=== PATIENT | female | born 1995 | race Caucasian/White ===

== ENCOUNTER → 2020-07-27 11:51 | Outpatient (BNVA) | payer MEDICAID, SELFPAY | PROVIDERS: Family Provider Family Medicine; Visit Provider Psychiatry & Neurology Psychiatry | DX: F32.9 Major depressive disorder, single episode, unspecified (principal); F41.9 Anxiety disorder, unspecified | CPT/HCPCS: 99214 ==

== ENCOUNTER 2020-10-16 19:47 | Emergency (ER) | payer BC, MEDICAID, SELFPAY ==
[2020-10-16 20:04] VITALS: BP 127/86; PULSE 120; RESP 14; TEMP 36.8; O2SAT 98; BMI 40.0
--- NOTE | 2020-10-16 20:19 | W.ED.FEMALGU ---
HPI - Female Genitourinary General: Chief complaint: Urogenital-Female Stated complaint: poss uti Time Seen by Provider: 10/16/20 20:08 History of Present Illness: HPI Narrative: Patient with 2-day history of urinary tract infection symptoms frequency oliguria has been taking Azo without relief has had a UTI in the past. Denies fever chills nausea or vomiting denies any vaginal discharge MD elicited complaint: UTI Onset (ago): day(s) Associated symptoms: Deny abdominal pain, headache(s) or nausea Review of Systems Const: Denies: fever(s), chills or body aches Eyes: Denies: change in vision or blurry vision ENMT: Denies: throat pain or nasal congestion Card: Denies: chest pain or dyspnea on exertion Resp: Denies: dyspnea, productive cough or non-productive cough GI: Denies: abdominal pain, nausea or vomiting : Reports: urinary frequency, urinary urgency and oliguria Musc: Denies: extremity pain Skin/Breast: Denies: rash Neuro: Denies: headache(s) Psych: Denies: anxiety or depression Jordin/Lymph: Denies: easy bruising PFSH ED PFSH: Medical History (Updated 10/16/20 @ 20:43 by ALMA Kaufman) Anxiety MDD (major depressive disorder) Social History (Updated 06/14/20 @ 15:02 by Ijeoma Hart LPN) Smoking and tobacco status: never smoked Second hand smoke exposure: No Current gender identity: Female Physical Exam Const: COMMON NORMALS: no acute distress, average body habitus and patient oriented x3 HENMT: COMMON NORMALS: normocephalic HEAD & SCALP: normal to inspection and normocephalic FACE & SINUS: normal facial exam Eye: COMMON NORMALS: conjunctivae normal GENERAL EYE: appearance normal, both eyes and all related structures CONJUNCTIVA: Yes conjunctivae normal Neck/C-Spine: COMMON NORMALS: no JVD Chest: COMMONS NORMALS: normal inspection of the chest Resp: COMMON NORMALS: normal respiratory effort Cardio: COMMON NORMALS: no JVD and regular rhythm RATE: tachycardic RHYTHM: regular rhythm GI: COMMON NORMALS: Normal to inspection, nondistended, normoactive bowel sounds present Extremity: COMMON NORMALS: normal to inspection and full ROM Neuro: COMMON NORMALS: patient oriented x3 Course Vital Signs: Vital signs: Vital Signs Temperature 98.2 F 10/16/20 20:04 Pulse Rate 120 H 10/16/20 20:04 Respiratory Rate 14 10/16/20 20:04 Blood Pressure 127/86 10/16/20 20:04 Pulse Oximetry 98 10/16/20 20:04 MDM - Female MDM Narrative: Medical decision making narrative: Patient with history of UTI type symptoms but UA is negative. She has left ovary area pain mildly tender. Does has some dysuria pain with urination said nassar when she pees. We will treat for localized inflammation and for her left ovary pain and she is to follow-up with her primary care provider. Differential Diagnosis: Differential diagnosis: Likely abdominal pain and constipation Lab Data: Labs: Lab Results 10/16/20 Range/Units 20:17 Urine Color Yellow (Yellow) Urine Appearance Clear (CLEAR) Urine pH 5.0 (5-7) Ur Specific Gravit y 1.010 (1.005-1.030) Urine Protein Neg (Negative) Urine Glucose (UA) Norm (Normal) Urine Ketones Negative (Negative) Urine Blood Neg (Negative) Urine Nitrate Negative (Negative) Urine Bilirubin Neg (Negative) Urine Urobilinogen Norm (Negative) mg/dL Ur Leukocyte Elaina ase Negative (Negative) Discharge Plan Discharge Patient Disposition: Home Clinical Impression: Dysuria Ovarian cyst Qualifiers: Laterality: left Qualified Code(s): N83.202 - Unspecified ovarian cyst, left side Condition: Stable Prescriptions: New Naprosyn 500 mg tablet 250 mg PO TID 3 Days Qty: 9 RF: 0 3-Day Vaginal 2 % cream 1 appful vaginal ONCE Qty: 21 RF: 0 No Action fluoxetine 40 mg capsule 40 mg PO DAILY 30 Days Qty: 30 RF: 3 buspirone 5 mg tablet 5 mg PO BID PRN (Reason: anxiety) 30 Days Qty: 60 RF: 3 Discharge Orders: Discharge ED (Routine); Ordered 10/16/20 Ordered By: Austyn Moran Referrals: Bryant Downey DO [Primary Care Provider] - Discharge Diet: Usual diet Discharge Activity: Resume usual activity Patient Instructions: Ovarian Cyst (ED), Dysuria (ED) Activity Restrictions/Additional Instructions: Follow-up with medical provider as directed. Take medications as prescribed. Return to the ER or your medical provider if condition worsens. Please read and understand discharge instructions. If any questions ask please. Coding Level of Care Code ED Education Courses Sales Representative for Chg Fwd Exam Comprehensive
[2020-10-16 20:23] LABS: Add Urine Microscopic? NO
[2020-10-16 20:37] LABS: Bilirubin Urine Neg (Negative); Blood Urine Neg (Negative); Glucose Urine UA Norm (Normal); Ketones Urine Negative (Negative); Leukocyte Esterase Urine Negative (Negative); Nitrate Urine Negative (Negative); Protein Urine Neg (Negative); Urine Appearance Clear (CLEAR); Urine Color Yellow (Yellow); Urobilinogen Urine Norm (Negative)
[2020-10-16] MEDS: TRAMadol 50 mg Tablet PO (21:09)
[2020-10-16 21:10] VITALS: BP 133/91; PULSE 111; RESP 14; O2SAT 97
== END 2020-10-16 21:10 | disposition home or self-care (01) ==
PROVIDERS: Emergency Provider Nurse Practitioner Family; PCP Family Medicine
DX: R30.0 Dysuria (principal); N83.202 Unspecified ovarian cyst, left side
CPT/HCPCS: 12345; 81003; 99281; 99282

== ENCOUNTER → 2020-11-02 07:59 | Outpatient (BNVA) | payer BC, SELFPAY | PROVIDERS: PCP Family Medicine; Visit Provider Psychiatry & Neurology Psychiatry | DX: F41.9 Anxiety disorder, unspecified (principal); F32.9 Major depressive disorder, single episode, unspecified | CPT/HCPCS: 99214 ==

== ENCOUNTER → 2020-12-28 10:36 | Outpatient (BNVA) | payer BC, SELFPAY | PROVIDERS: PCP Family Medicine; Visit Provider Social Worker Clinical | DX: F41.9 Anxiety disorder, unspecified (principal); F32.9 Major depressive disorder, single episode, unspecified | CPT/HCPCS: 90834 ==

== ENCOUNTER → 2021-01-16 13:26 | Outpatient (BNVA) | payer BC, SELFPAY | PROVIDERS: PCP Family Medicine; Visit Provider Social Worker Clinical | DX: F41.9 Anxiety disorder, unspecified (principal); F32.9 Major depressive disorder, single episode, unspecified; F43.12 Post-traumatic stress disorder, chronic | CPT/HCPCS: 90834 ==

== ENCOUNTER → 2021-02-05 07:54 | Outpatient (BNVA) | payer BC, SELFPAY | PROVIDERS: PCP Family Medicine; Visit Provider Psychiatry & Neurology Psychiatry | DX: F41.9 Anxiety disorder, unspecified (principal); F32.9 Major depressive disorder, single episode, unspecified | CPT/HCPCS: 99214 ==

== ENCOUNTER → 2021-02-15 11:23 | Outpatient (BNVA) | payer BC, SELFPAY | PROVIDERS: PCP Family Medicine; Visit Provider Social Worker Clinical | DX: F32.9 Major depressive disorder, single episode, unspecified (principal); F41.9 Anxiety disorder, unspecified | CPT/HCPCS: 90834 ==

== ENCOUNTER 2021-02-24 18:43 | Emergency (ER) | payer BC, MEDICAID, SELFPAY ==
[2021-02-24 18:56] VITALS: BP 119/81; PULSE 118; RESP 18; TEMP 36.9; O2SAT 94; BMI 42.0
--- NOTE | 2021-02-24 20:01 | ED_ITS ---
HPI - Abdominal Pain General: Chief Complaint: Abdominal Pain Stated Complaint: RLQ ABD PAIN Time Seen by Provider: 02/24/21 19:51 History of Present Illness: HPI narrative: Patient comes in for nausea and right lower quadrant abdominal pain since this morning. Patient reports no vomiting. Patient appears well. Patient appears in mild to no pain. Patient reports she started some vaginal bleeding this morning 2. Patient is concerned for ovarian cyst. Review of Systems General: Reports: 10 or more systems reviewed and unremarkable except in HPI and below GI: Reports: abdominal pain PFSH ED PFSH: Medical History (Updated 02/24/21 @ 22:05 by ALMA Jeong) Anxiety MDD (major depressive disorder) Social History (Updated 06/14/20 @ 15:02 by Ijeoma Hart LPN) Smoking and tobacco status: never smoked Second hand smoke exposure: No Current gender identity: Female Physical Exam Const: COMMON NORMALS: no acute distress and patient oriented x3 GENERAL APPEARANCE: cooperative HENMT: COMMON NORMALS: normocephalic, TM's normal bilaterally and Normal external nose present HEAD & SCALP: normal to inspection and normocephalic NOSE: Normal external nose present TYMPANIC MEMBRANE: TM's normal bilaterally MOUTH: Normal oral and palatal mucosa present Eye: GENERAL EYE: appearance normal, both eyes and all related structures Neck/C-Spine: COMMON NORMALS: full ROM Chest: COMMONS NORMALS: normal inspection of the chest Resp: COMMON NORMALS: normal respiratory effort EFFORT & INSPECTION: Yes able to speak in complete sentences Cardio: COMMON NORMALS: regular rate and regular rhythm RATE: regular rate RHYTHM: regular rhythm GI: COMMON NORMALS: Soft to palpation PALPATION: Yes Soft to palpation and Yes Tenderness to palpation present (GI) Details: RLQ : COMMON NORMALS: Yes no CVA tenderness BLADDER/KIDNEY EXAM: Yes no CVA tenderness Back/Pelvis: COMMON NORMALS: no CVA tenderness and thoracic and lumbar spine normal to inspection Extremity: COMMON NORMALS: normal to inspection Neuro: COMMON NORMALS: patient oriented x3 and moves all extremities Psych: COMMON NORMALS: mental status grossly normal and cooperative Skin: COMMON NORMALS: no rashes or lesions noted GENERAL SKIN EXAM: no rashes or lesions noted Course ED course: 2200, patient reports feeling better. Ultrasound was unremarkable. Reviewed with patient recommendations for supportive care and monitoring. Patient reported understanding agreed to plan. Vital Signs: Vital signs: Vital Signs Temperature 98.4 F 02/24/21 18:56 Pulse Rate 118 H 02/24/21 18:56 Respiratory Rate 18 02/24/21 18:56 Blood Pressure 119/81 02/24/21 18:56 Pulse Oximetry 94 02/24/21 18:56 MDM - Abdominal Pain MDM Narrative: Medical decision making narrative: 25-year-old female comes in today with complaints of right lower quadrant abdominal pain. On exam abdomen is soft and nontender. Patient did have some mild tenderness to the right lower abdomen and suprapubic area. Patient was concerned for possible ovarian cyst. Patient denies any vomiting or diarrhea. Patient appears well. Differential diagnosis includes not limited to appendicitis, ovarian cyst, mittelschmerz. Laboratory values did note a slight increase in the white blood cell count of 16,000, remainder labs were unremarkable. Ultrasound of the lower abdomen indicated no significant abnormality. Reviewed exam with patient with recommendations for monitoring for fever and worsening symptoms such as pain or nausea and vomiting. Patient was recommended to return to the ER for the symptoms because at that time we would need to do a CT scan to rule out appendicitis. Patient reported understanding of care plan and need for follow- up or return to the ER. Lab Data: Labs: Lab Results 02/24/21 02/24/21 02/24/21 Range/Units 20:03 20:07 20:07 WBC 16.0 H (4.0-10.0) 10^3/ uL RBC 4.95 (4.1-5.3) 10^6/u L Hgb 14.0 (11.5-15.3) g/dL Hct 42.0 (37.0-47.0) % MCV 84.8 (81-99) fL MCH 28.3 (28.0-34.0) pg MCHC 33.3 (30.0-36.0) g/dL RDW 13.2 (12.1-15.1) % Plt Count 299 (130-400) 10^3/c mm MPV 11.7 H (7.4-10.4) fL Neut % (Auto) 77.8 % Lymph % (Auto) 15.2 % Knott % (Auto) 6.0 % Eos % (Auto) 0.3 % Baso % (Auto) 0.4 % Neut # (Auto) 12.45 H (1.8-7.7) 10^3/u L Lymph # (Auto) 2.4 (0.8-4.8) 10^3/u L Knott # (Auto) 1.0 H (0.2-0.9) 10^3/u L Eos # (Auto) 0.1 (0.0-0.8) 10^3/u L Baso # (Auto) 0.1 (0.0-0.1) 10^3/u L Nucleated RBC % (a uto) 0 % Nucleated RBCs # 0.0 /100WBC Sodium 139 (136-145) mmol/L Potassium 4.2 (3.5-5.1) mmol/L Chloride 105 (98-107) mmol/L Carbon Dioxide 22 (22-29) mmol/L Anion Gap 16.2 (5-19) BUN 9 (6-20) mg/dL Creatinine 0.8 (0.5-0.9) mg/dL GFR Calculation 87.4 L (90-130) mL/min Glucose 101 (65-115) mg/dL Calculated Osmolal ity 287 (285-295) mOsm/k g Calcium 9.0 (8.5-10.5) mg/dL Total Bilirubin 0.3 (0.15-1.2) mg/dL AST 21 (0-32) U/L ALT 20 (0-33) U/L Alkaline Phosphata se 81 (35-105) IU/L Total Protein 7.6 (6.6-8.7) g/dL Albumin 4.6 (3.5-5.2) g/dL Globulin 3.0 (1.3-4.6) g/dL Lipase 26 (13-60) U/L HCG, Qual (Negative) Urine Color Yellow (Yellow) Urine Appearance Clear (CLEAR) Urine pH 6.5 (5-7) Ur Specific Gravit y 1.015 (1.005-1.030) Urine Protein Neg (Negative) Urine Glucose (UA) Norm (Normal) Urine Ketones Negative (Negative) Urine Blood Neg (Negative) Urine Nitrate Negative (Negative) Urine Bilirubin Neg (Negative) Urine Urobilinogen Norm (Negative) mg/dL Ur Leukocyte Elaina ase Negative (Negative) 02/24/21 Range/Units 20:07 WBC (4.0-10.0) 10^3/ uL RBC (4.1-5.3) 10^6/u L Hgb (11.5-15.3) g/dL Hct (37.0-47.0) % MCV (81-99) fL MCH (28.0-34.0) pg MCHC (30.0-36.0) g/dL RDW (12.1-15.1) % Plt Count (130-400) 10^3/c mm MPV (7.4-10.4) fL Neut % (Auto) % Lymph % (Auto) % Knott % (Auto) % Eos % (Auto) % Baso % (Auto) % Neut # (Auto) (1.8-7.7) 10^3/u L Lymph # (Auto) (0.8-4.8) 10^3/u L Knott # (Auto) (0.2-0.9) 10^3/u L Eos # (Auto) (0.0-0.8) 10^3/u L Baso # (Auto) (0.0-0.1) 10^3/u L Nucleated RBC % (a uto) % Nucleated RBCs # /100WBC Sodium (136-145) mmol/L Potassium (3.5-5.1) mmol/L Chloride (98-107) mmol/L Carbon Dioxide (22-29) mmol/L Anion Gap (5-19) BUN (6-20) mg/dL Creatinine (0.5-0.9) mg/dL GFR Calculation (90-130) mL/min Glucose (65-115) mg/dL Calculated Osmolal ity (285-295) mOsm/k g Calcium (8.5-10.5) mg/dL Total Bilirubin (0.15-1.2) mg/dL AST (0-32) U/L ALT (0-33) U/L Alkaline Phosphata se (35-105) IU/L Total Protein (6.6-8.7) g/dL Albumin (3.5-5.2) g/dL Globulin (1.3-4.6) g/dL Lipase (13-60) U/L HCG, Qual Negative (Negative) Urine Color (Yellow) Urine Appearance (CLEAR) Urine pH (5-7) Ur Specific Gravit y (1.005-1.030) Urine Protein (Negative) Urine Glucose (UA) (Normal) Urine Ketones (Negative) Urine Blood (Negative) Urine Nitrate (Negative) Urine Bilirubin (Negative) Urine Urobilinogen (Negative) mg/dL Ur Leukocyte Elaina ase (Negative) Discharge Plan Discharge Patient Disposition: Home Clinical Impression: Abdominal pain Qualifiers: Abdominal location: right lower quadrant Qualified Code(s): R10.31 - Right lower quadrant pain Condition: Stable Prescriptions: No Action buspirone 15 mg tablet 15 mg PO TID PRN (Reason: anxiety) 30 Days Qty: 90 RF: 3 fluoxetine 40 mg capsule 40 mg PO DAILY 30 Days Qty: 30 RF: 3 3-Day Vaginal 2 % cream 1 appful vaginal ONCE Qty: 21 RF: 0 Discharge Orders: Discharge ED (Routine); Ordered 02/24/21 Ordered By: Chicho Mcgarry Referrals: Bryant Downey DO [Primary Care Provider] - Discharge Diet: Usual diet Discharge Activity: Increase activity as tolerated Patient Instructions: Abdominal Pain (ED), Opioid Safety Activity Restrictions/Additional Instructions: Home and rest. Drink plenty of water. Activity as tolerated. Return to the ER for worsening pain or high fever. At that time he may need to have a CT scan for further evaluation to rule out appendicitis or other infection. Follow-up with primary care otherwise for further evaluation and treatment. Coding Level of Care Code ED Aboriginal Community [employer] Member for Anupam Fwd Exam Comprehensive
[2021-02-24 20:09] LABS: Add Urine Microscopic? NO; Charge for UA Resulting for Rev
[2021-02-24 20:12] LABS: Basophils # 0.1 10^3/uL (0.0-0.1); Basophils % 0.4 %; Eosinophils # 0.1 10^3/uL (0.0-0.8); Eosinophils % 0.3 %; Lymphocytes # 2.4 10^3/uL (0.8-4.8); Lymphocytes % 15.2 %; Mean Corpuscular HGB Conc 33.3 g/dL (30.0-36.0); Mean Corpuscular Hemoglobin 28.3 pg (28.0-34.0); Mean Corpuscular Volume 84.8 fL (81-99); Mean Platelet Volume 11.7 fL (7.4-10.4); Neutrophils # 12.45 10^3/uL (1.8-7.7); Neutrophils % 77.8 %; Nucleated Red Blood Cells % 0 %; Platelet Count 299 10^3/cmm (130-400); Red Blood Count 4.95 10^6/uL (4.1-5.3); Red Cell Distribution Width 13.2 % (12.1-15.1)
--- NOTE | 2021-02-24 20:12 | USR_ITS ---
PROCEDURE INFORMATION: Exam: US Pelvis Complete, Transabdominal and US Pelvis, Transvaginal Exam date and time: 02/24/2021 8:12 PM Age: 25 years old Clinical indication: Pelvic pain; Patient HX: Deborah! No menses 9 months since depro shot; Additional info: Right side pelvic pain, vaginal bleeding TECHNIQUE: Imaging protocol: Real-time transabdominal and transvaginal pelvic ultrasound (complete) with image documentation. Transvaginal imaging was used for better evaluation of the endometrium, adnexa, and/or cervix. COMPARISON: No relevant prior studies available. FINDINGS: Uterus/cervix: The cervix is closed and measures 2.8 cm in length. The uterus measures 7.9 x 3.5 x 4.9 cm. Homogeneous hyperechoic endometrial stripe is seen measuring 6.2 the mm. Right adnexa: The right ovary measures 3.0 x 2.5 x 3.2 cm. Small sub cm anechoic cystic masses are seen within the right ovary compatible with benign follicles. Vascular flow is demonstrated within the right ovary with color and duplex waveform sonography. PSV 13.8 cm/s, RI 0.69. Left adnexa: Left ovary measures 2.2 x 1 4 x 2.8 cm. Vascular flow is demonstrated within the left ovary with color Doppler and duplex waveform sonography. PSV 10.3 cm/s, RI 0.46. Intraperitoneal space: No intraperitoneal fluid. Urinary bladder: Normal. US/US pelvic with transvaginal IMPRESSION: There are no acute pelvic findings.
[2021-02-24 20:13] LABS: Bilirubin Urine Neg (Negative); Blood Urine Neg (Negative); Glucose Urine UA Norm (Normal); Ketones Urine Negative (Negative); Leukocyte Esterase Urine Negative (Negative); Nitrate Urine Negative (Negative); Protein Urine Neg (Negative); Specific Gravity, Urine 1.015 (1.005-1.030); Urine Appearance Clear (CLEAR); Urine Color Yellow (Yellow); Urobilinogen Urine Norm (Negative); pH Urine 6.5 (5-7)
[2021-02-24 20:27] LABS: Alanine Aminotransferase 20 U/L (0-33); Albumin Level 4.6 g/dL (3.5-5.2); Alkaline Phosphatase 81 IU/L (35-105); Anion Gap 16.2 (5-19); Aspartate Amino Transferase 21 U/L (0-32); Blood Urea Nitrogen 9 mg/dL (6-20); Carbon Dioxide 22 mmol/L (22-29); Chloride 105 mmol/L (98-107); Glomerular Filtration Rate 87.4 mL/min (90-130); Glucose 101 mg/dL (65-115); Lipase 26 U/L (13-60); Osmolality Calculated 287 mOsm/kg (285-295); Potassium 4.2 mmol/L (3.5-5.1); Sodium 139 mmol/L (136-145); Total Bilirubin 0.3 mg/dL (0.15-1.2); Total Protein 7.6 g/dL (6.6-8.7)
[2021-02-24 20:30] LABS: HCG, Serum Qual Negative (Negative)
[2021-02-24] MEDS: HYDROcodone-acetaminophen 5-325 mg Tablet 1 TAB PO (21:07)
[2021-02-24] MEDS: ondansetron 4 MG Tablet PO (21:08)
[2021-02-24 22:10] VITALS: BP 156/85; PULSE 89; RESP 18; TEMP 36.6; O2SAT 98
== END 2021-02-24 22:28 | disposition home or self-care (01) ==
PROVIDERS: Emergency Medicine; Emergency Provider Nurse Practitioner Family; PCP Family Medicine
DX: R10.31 Right lower quadrant pain (principal)
CPT/HCPCS: 36415; 76830; 76856; 80053; 81003; 83690; 84703; 85025; 99283; Q0162

== ENCOUNTER → 2021-05-31 12:21 | Outpatient (BNVA) | payer BC, MEDICAID, SELFPAY | PROVIDERS: PCP Family Medicine; Visit Provider Psychiatry & Neurology Psychiatry | DX: F41.9 Anxiety disorder, unspecified (principal); F32.9 Major depressive disorder, single episode, unspecified | CPT/HCPCS: 99214 ==

== ENCOUNTER 2021-10-13 10:23 | Emergency (ER) | payer BC, MEDICAID, SELFPAY ==
[2021-10-13 10:36] VITALS: BP 131/81; PULSE 130; RESP 14; TEMP 37.1; O2SAT 97; BMI 45.7
--- NOTE | 2021-10-13 11:04 | ED_ITS ---
HPI - General Adult General: Chief complaint: General Medical Stated complaint: Was covid + Hands, wrist, and lower back pain Time Seen by Provider: 10/13/21 11:06 History of Present Illness: Patient Covid +10 days ago. Has history of chronic joint pain patient states that COVID apparently flared it up. She did receive her second modena vaccine 3 days ago. Patient also has history of anxiety and says she feels very anxious. Also has a history of chronic tachycardia, especially related to her anxiety.. Patient denies any shortness of breath chest pain nausea or vomiting. Has not take any medication for her joint pain. Onset (ago): day(s) Associated symptoms: Reports nausea and vomiting; Deny chest pain, dyspnea, headache(s) or rash Review of Systems Narrative: Patient recently did a home test for Covid and it was positive. Then she received her Modenavaccine few days later. Const: Denies: fever(s), chills or body aches Eyes: Denies: eye discomfort ENMT: Denies: throat pain Card: Reports: dyspnea on exertion; Denies: chest pain Resp: Denies: dyspnea GI: Reports: nausea and vomiting; Denies: abdominal pain Skin/Breast: Denies: rash Neuro: Denies: headache(s) Psych: Denies: depression or suicidal ideation PFS ED PFSH: Medical History (Updated 10/13/21 @ 11:04 by ALMA Kaufman) Anxiety MDD (major depressive disorder) Psychiatric care Social History (Updated 06/14/20 @ 15:02 by Ijeoma Pate LPN) Smoking and tobacco status: never smoked Second hand smoke exposure: No Current gender identity: Female Female Reproductive History: Date of last menstrual period: 09/12/21 Physical Exam Const: COMMON NORMALS: no acute distress, patient oriented x3 and alert HENMT: COMMON NORMALS: normocephalic HEAD & SCALP: normocephalic Eye: COMMON NORMALS: EOMs intact bilaterally Neck/C-Spine: COMMON NORMALS: no JVD Resp: COMMON NORMALS: normal respiratory effort and No use of accessory muscles Cardio: COMMON NORMALS: no JVD RATE: tachycardic GI: INSPECTION: Yes normal to inspection Extremity: COMMON NORMALS: normal to inspection and full ROM Neuro: COMMON NORMALS: patient oriented x3 SENSORIUM/ORIENTATION: Yes alert Psych: COMMON NORMALS: mental status grossly normal Skin: COMMON NORMALS: no rashes or lesions noted GENERAL SKIN EXAM: no rashes or lesions noted Course Vital Signs: Vital signs: Vital Signs Temperature 98.7 F 10/13/21 10:36 Pulse Rate 102 H 10/13/21 11:23 Respiratory Rate 14 10/13/21 11:23 Blood Pressure 131/81 10/13/21 10:36 Pulse Oximetry 97 10/13/21 10:36 MDM - General Adult Medical Decision Making Patient positive for COVID last 10 days and also received Materna vaccine. Patient denies any shortness of breath chest pains or fevers presently. Patient is anxious has a history of anxiety. Patient complains about joint pains since having Covid. It flared up quite a bit. Patient not taking [id number] medication. Discharge Plan Discharge Patient Disposition: Home Clinical Impression: COVID-19 Condition: Stable Prescriptions: New Celebrex 100 mg capsule 100 mg PO BID Qty: 20 0RF No Action venlafaxine 75 mg capsule,extended release 24hr 75 mg PO QAM 30 Days Qty: 30 3RF fluoxetine 40 mg capsule 40 mg PO DAILY 30 Days Qty: 30 3RF buspirone 15 mg tablet 15 mg PO TID PRN (Reason: anxiety) 30 Days Qty: 90 3RF Discharge Orders: Discharge ED (Routine); Ordered 10/13/21 Ordered By: Austyn Moran Referrals: Bryant Downey, [Primary Care Provider] - Discharge Diet: Usual diet Discharge Activity: Increase activity as tolerated Patient Instructions: COVID-19 and Chronic Health Conditions (ED) Activity Restrictions/Additional Instructions: Follow-up with medical provider as directed. Take medications as prescribed. Return to the ER or your medical provider if condition worsens. Please read and understand discharge instructions. If any questions ask please. Make sure you drink plenty of water. Can take Tylenol also for discomfort. Coding Level of Care Code ED Supervisor [employer]le House Cleaners for Anupam Fwd Exam Comprehensive
[2021-10-13 11:23] VITALS: PULSE 102; RESP 14
== END 2021-10-13 11:24 | disposition home or self-care (01) ==
PROVIDERS: Emergency Provider Nurse Practitioner Family; PCP Family Medicine
DX: U07.1 COVID-19 (principal)
CPT/HCPCS: 99281

== ENCOUNTER → 2021-10-25 14:42 | Outpatient (BNVA) | payer BC, MEDICAID, SELFPAY | PROVIDERS: PCP Family Medicine; Visit Provider Psychiatry & Neurology Psychiatry | DX: F41.9 Anxiety disorder, unspecified (principal); F32.9 Major depressive disorder, single episode, unspecified | CPT/HCPCS: 99214 ==

== ENCOUNTER → 2022-01-10 14:03 | Outpatient (BNVA) | payer BC, MEDICAID, SELFPAY | PROVIDERS: PCP Family Medicine; Visit Provider Psychiatry & Neurology Psychiatry | DX: F32.9 Major depressive disorder, single episode, unspecified (principal); F98.8 Other specified behavioral and emotional disorders with onset usually occurring in childhood and adolescence; F40.10 Social phobia, unspecified; F41.9 Anxiety disorder, unspecified | CPT/HCPCS: 99214 ==

== ENCOUNTER → 2022-01-21 08:46 | Outpatient (BNVA) | payer BC, MEDICAID, SELFPAY | PROVIDERS: PCP Family Medicine; Visit Provider Clinical Nurse Specialist Adult Health | DX: R42 Dizziness and giddiness (principal) | CPT/HCPCS: 80053; 83036; 85025 ==

== ENCOUNTER → 2022-02-28 07:07 | Outpatient (BNVA) | payer BC, MEDICAID, SELFPAY | PROVIDERS: PCP Family Medicine; Visit Provider Family Medicine | DX: R30.0 Dysuria (principal) | CPT/HCPCS: 81000; 87077; 87086; 87184 ==

== ENCOUNTER 2022-05-02 20:09 | Emergency (ER) | payer BC, MEDICAID, SELFPAY ==
--- NOTE | 2022-05-02 20:12 | XRR_ITS ---
PROCEDURE INFORMATION: Exam: XR Chest Exam date and time: 05/02/2022 9:13 PM Age: 26 years old Clinical indication: Angina; Additional info: Cp TECHNIQUE: Imaging protocol: Radiologic exam of the chest. Views: 1 view. COMPARISON: No relevant prior studies available. FINDINGS: Lungs: Unremarkable. No consolidation. Pleural spaces: Unremarkable. No pleural effusion. No pneumothorax. Heart/Mediastinum: Unremarkable. No cardiomegaly. Bones/joints: Unremarkable. XR/XR chest 1V portable [id number] IMPRESSION: No acute findings.
--- NOTE | 2022-05-02 20:12 | ECG_ITS ---
[facility] Test Date: 2022-05-02 Pat Name: Krystin Cr Department: Room: Gender: Female Director Service: : 1995 Requested By: Mayi Khalil Order Number: [id number] Teresa MD: Cresencio Flynn M.D. Measurements Intervals [place] Rate: 115 P: 36 OR: 128 QRS: 26 QRSD: 76 T: 28 QT: 325 QTc: 451 Interpretive Statements SINUS TACHYCARDIA Nonspecific T wave changes ABNORMAL RHYTHM ECG No previous ECG available for comparison Electronically Signed On 05-02-2022 22:52:14 CDT by Cresencio Flynn M.D. [email or web address]
[2022-05-02 20:38] VITALS: BP 123/88; PULSE 119; RESP 18; TEMP 37.2; O2SAT 98; BMI 39.3
--- NOTE | 2022-05-02 20:57 | W.ED.GENADLT ---
HPI - General Adult General: Chief complaint: Allergic Reaction Stated complaint: Chest pain from new medicine Time Seen by Provider: 05/02/22 20:55 History of Present Illness: Patient is a 26-year-old female with history of allergies to amoxicillin presents the emergency room for concerns of acute allergic reaction 10 minutes after taking 10 mg of atomoxetine. Patient tells me that she took her medicine around 6:30PM and suddenly began experiencing paresthesia over her body and shortness of breath. Patient said that now she is got tingling sensation in her back of her throat and thinks that her throat is closing. Patient denies any skin changes, nausea vomiting or diarrhea. Patient has no prior anaphylaxis to any medication. Patient does not remember what her allergy to amoxicillin is. Patient denies any drooling, hoarseness of voice, stridor, difficulty speaking, or any new extremity complaints. No family history of angioedema. Patient denies any prior history of angioedema or facial swelling. Onset:6:30pm Duration:ongoing Location:home Severity:mild Associated symptoms: Reports dyspnea; Deny chest pain, nausea, rash, palpitations or vomiting Review of Systems Const: Denies: fever(s) or chills Eyes: Denies: change in vision ENMT: Reports: other (+mild throat numbness); Denies: mouth pain Card: Denies: chest pain or palpitations Resp: Reports: dyspnea; Denies: non-productive cough GI: Denies: abdominal pain, nausea, vomiting or diarrhea : Denies: dysuria Musc: Denies: extremity pain Skin/Breast: Denies: rash or new lesions Neuro: Denies: weakness in extremities Psych: Reports: other (Normal mood) Jordin/Lymph: Denies: easy bruising PFSH ED PFSH: Medical History ADHD Anxiety MDD (major depressive disorder) Psychiatric care Social anxiety disorder Social History Smoking and tobacco status: never smoked Second hand smoke exposure: No Current gender identity: Female Female Reproductive History: Date of last menstrual period: 09/12/21 Physical Exam Const: COMMON NORMALS: alert HENMT: COMMON NORMALS: atraumatic HEAD & SCALP: atraumatic MOUTH: moist mucous membranes not abnormal OTHER: + No posterior oropharyngeal edema or swelling, normal phonation, no drooling, no hoarseness of voice Eye: COMMON NORMALS: EOMs intact bilaterally and conjunctivae normal CONJUNCTIVA: Yes conjunctivae normal Neck/C-Spine: COMMON NORMALS: full ROM and supple Resp: COMMON NORMALS: normal respiratory effort and clear to auscultation bilaterally AUSCULTATION: clear to auscultation bilaterally OTHER: + No wheezes rales or rhonchi Cardio: COMMON NORMALS: regular rate RATE: regular rate GI: COMMON NORMALS: Soft to palpation and non-tender PALPATION: Yes Soft to palpation Extremity: COMMON NORMALS: full ROM Neuro: SENSORIUM/ORIENTATION: Yes alert MOTOR EXAM: No Abnormal motor strength present and Other motor observations present (no focal motor deficits) Psych: COMMON NORMALS: speech normal SPEECH: Yes normal speech MOOD & AFFECT: Yes euthymic mood OTHER: No erythema or urticaria Course Vital Signs: Vital signs: Vital Signs Temperature 98.9 F 05/02/22 20:38 Pulse Rate 84 05/02/22 22:32 Respiratory Rate 20 H 05/02/22 22:32 Blood Pressure 129/97 05/02/22 22:32 Pulse Oximetry 98 05/02/22 22:32 Oxygen Delivery Me thod 05/02/22 22:32 MDM - General Adult Medical Decision Making 26-year-old female presenting to the emergency room for concerns of acute allergic reaction to atomoxetine. Patient has been having symptoms for last 3 hours. Patient reported shortness of breath, paresthesia, and throat sensation. On physical exam, patient is AAOx3. No signs of skin changes. Patient has clear lung sounds. Patient has no signs of oral airway compromise. There is no signs of oral facial swelling. Patient's continues to be satting well without any increased work of breathing. Patient was observed in the emergency for 2 hours. Patient received Pepcid, Benadryl, and Solu-Medrol. Patient reports that she feels symptomatically improved. XR appears to be clear. Rx: pepcid and benadryl PRN allergic reaction Disposition: Discharge. Patient counseled regarding diagnostic impression, treatment plan. Patient given ED strict return precautions to return for continuation, worsening, or development of new symptoms. Instructed to f/u w/ PCP regarding symptoms today. Patient verbalized understanding. Lab Data Radiology Impressions Chest X-Ray 05/02/22 20:12 IMPRESSION: No acute findings. Discharge Plan Discharge Patient Disposition: Home Clinical Impression: Allergic reaction Condition: Stable Prescriptions: No Action propranolol 10 mg tablet 10 mg PO BID PRN (Reason: anxiety) 30 Days Qty: 60 3RF Tylenol Ex Str Rapid Release 500 mg Tablet 1,000 mg PO Q6H PRN (Reason: Pain) Benadryl Allergy 25 mg Tablet 50 mg PO Q6H PRN (Reason: Allergic Reaction) ProAir HFA 90 mcg/actuation HFA aerosol inhaler 2 puff INHALATION Q4H PRN (Reason: Shortness Of Breath) dextroamphetamine-amphetamine 5 mg tablet 1 tab PO QAM PRN (Reason: unknown) fluoxetine 40 mg capsule 40 mg PO BEDTIME venlafaxine 150 mg capsule,extended release 24hr 150 mg PO BEDTIME Depo-Provera 150 mg/mL suspension 150 mg IM .EVERY 3 MONTHS Discharge Orders: Discharge ED (Routine); Ordered 05/02/22 Ordered By: J Luis Coles Referrals: Bryant Downey DO [Primary Care Provider] - Discharge Diet: Advance as tolerated Discharge Activity: Increase activity as tolerated Patient Instructions: Allergic Reaction, Allergies (ED) Activity Restrictions/Additional Instructions: Come back if you have any new or concerning issues. Coding Level of Care Code ED Automotive Service Assistant for Anupam Fwsavanna Exam Comprehensive
[2022-05-02] MEDS: sodium chloride 0.9% 500 ML IV (21:26)
[2022-05-02] MEDS: famotidine 20 mg/2 mL INJ 40 MG IVP (21:28)
[2022-05-02] MEDS: diphenhydrAMINE 50 mg/mL SDV 1mL IVP (21:28)
[2022-05-02 22:32] VITALS: BP 129/97; PULSE 84; RESP 20; O2SAT 98
== END 2022-05-02 23:19 | disposition home or self-care (01) ==
PROVIDERS: Emergency Provider Emergency Medicine; PCP Family Medicine
DX: T78.40XA Allergy, unspecified, initial encounter (principal)
CPT/HCPCS: 71045; 93005; 96361; 96374; 96375; 99284; J1200; J2930; J3490; J7040

== ENCOUNTER 2022-05-13 11:27 | Emergency (ER) | payer BC, MEDICAID, SELFPAY ==
[2022-05-13 11:36] VITALS: BP 137/95; PULSE 109; RESP 20; TEMP 36.8; O2SAT 97; BMI 39.1
--- NOTE | 2022-05-13 11:42 | ECG_ITS ---
[facility] Test Date: 2022-05-13 Pat Name: Krystin Cr Department: Room: Gender: Female [employer] Agent: : 1995 Requested By: Joel Palma Order Number: [id number] Teresa MD: Kermit Lorenzana M.D. Measurements Intervals [place] Rate: 120 P: 38 HI: 135 QRS: 26 QRSD: 78 T: 39 QT: 325 QTc: 461 Interpretive Statements SINUS TACHYCARDIA ABNORMAL RHYTHM ECG Compared to ECG 05/02/2022 20:54:09 T-wave abnormality no longer present Electronically Signed On 05-13-2022 14:00:38 CDT by Kermit Lorenzana M.D. [email or web address] [email or web address] regional health centeruma information technologyst. john of god hospitalSlate Pharmaceuticals/store/OM/[id number]/[id number]
--- NOTE | 2022-05-13 12:08 | XR_ITS ---
WS: [id number] Exam: XR chest 1V portable [id number] Date/Time of Exam: 05/13/2022 12:13 PM Reason For Exam: cp Comparison 05/02/2022. Findings: The lungs are clear and fully expanded. Costophrenic angles are sharp. No infiltrates. Bronchovascula r relief appears normal. Cardiac silhouette is unremarkable. Bony elements are intact. XR/XR chest 1V portable [id number] IMPRESSION: Unremarkable chest radiograph.
--- NOTE | 2022-05-13 12:08 | W.ED.CHESTPA ---
HPI - Chest Pain General: Chief Complaint: Chest Pain Stated Complaint: Chest Pain Time Seen by Provider: 05/13/22 12:04 History of Present Illness: 26-year-old presents due to chest pain shortness of breath. Reports diffuse generalized achy pain coughing and shortness of breath since she had an allergic reaction to her psychiatric medication 2 weeks ago. She has been off the medication. Denies lower extremity pain or swelling. Denies any radiation to the back. Denies any exertional pleuritic component. Denies fevers or chills. Review of Systems Narrative: - CONSTITUTIONAL: Denies weight loss, fever and chills. - HEENT: Denies changes in vision and hearing. - RESPIRATORY: As above - CV: As above - GI: Denies abdominal pain, nausea, vomiting and diarrhea. - : Denies dysuria and urinary frequency. - MSK: Denies myalgia and joint pain. - SKIN: Denies rash and pruritus. - NEUROLOGICAL: Denies headache, weakness, numbness and syncope. - PSYCHIATRIC: Denies suicidal ideation [facility] ED PFSH: Medical History ADHD Anxiety MDD (major depressive disorder) Psychiatric care Social anxiety disorder Social History Smoking and tobacco status: never smoked Second hand smoke exposure: No Current gender identity: Female Female Reproductive History: Date of last menstrual period: 09/12/21 Physical Exam Narrative: EXAM NARRATIVE: - GENERAL: Alert and oriented x 3. No acute distress. Well-nourished. - EYES: EOMI. Anicteric. - HENT: Atraumatic, no C-spine tenderness. Moist mucous membranes. No scleral icterus. No cervical lymphadenopathy. - LUNGS: Clear to auscultation bilaterally. No accessory muscle use. Equal lung sounds bilaterally. No respiratory distress. - CARDIOVASCULAR: Tachycardia, regular rhythm. No murmur. No JVD. - ABDOMEN: Soft, non-tender and non-distended. Negative CVA tenderness bilaterally, no rebound or guarding, negative Anderson sign. No palpable masses. - EXTREMITIES: No edema. Non-tender. - SKIN: No rashes or lesions. Warm. - NEUROLOGIC: No meningismus or focal neurological deficits. CN II-XII grossly intact. - PSYCHIATRIC: Cooperative. Appropriate mood and affect. Course Vital Signs: Vital signs: Vital Signs Temperature 98.3 F 05/13/22 11:36 Pulse Rate 109 H 05/13/22 11:36 Respiratory Rate 20 H 05/13/22 11:36 Blood Pressure 137/95 05/13/22 11:36 Pulse Oximetry 97 05/13/22 11:36 Oxygen Delivery Me thod 05/13/22 11:36 MDM - Chest Pain Medical Decision Making 26-year-old presents with chest pain shortness of breath. EKG and troponin do not reveal any sign of acute ischemia or other acute abnormality. D-dimer is negative. Remainder of lab work unremarkable. X-ray unremarkable. At this time I believe patient would be safe for discharge and outpatient follow-up. Return precautions provided. Plan was reviewed with the patient who expressed understanding. Questions answered. Patient will follow up with PCP. Patient discharged in stable condition. Lab Data : 05/13/22 12:31 05/13/22 12:31 Radiology Impressions Chest X-Ray 05/13/22 12:08 IMPRESSION: Unremarkable chest radiograph. Laboratory Results WBC 12.6 10^3/uL (4.0-10.0) H 05/13/22 12:31 RBC 5.27 10^6/uL (4.1-5.3) 05/13/22 12:31 Hgb 14.5 g/dL (11.5-15.3) 05/13/22 12:31 Hct 45.1 % (37.0-47.0) 05/13/22 12:31 MCV 85.6 fl (81-99) 05/13/22 12:31 MCH 27.5 pg (28.0-34.0) L 05/13/22 12:31 MCHC 32.2 g/dL (30.0-36.0) 05/13/22 12:31 RDW 13.5 % (12.1-15.1) 05/13/22 12:31 Plt Count 357 10^3/cmm (130-400) 05/13/22 12:31 MPV 12.2 fL (7.4-10.4) H 05/13/22 12:31 Neut % (Auto) 62.9 % 05/13/22 12:31 Lymph % (Auto) 28.4 % 05/13/22 12:31 [place] % (Auto) 6.0 % 05/13/22 12:31 Eos % (Auto) 1.7 % 05/13/22 12:31 Baso % (Auto) 0.6 % 05/13/22 12:31 Neut # (Auto) 7.90 10^3/uL (1.8-7.7) H 05/13/22 12:31 Lymph # (Auto) 3.6 10^3/uL (0.8-4.8) 05/13/22 12:31 [place] # (Auto) 0.8 10^3/uL (0.2-0.9) 05/13/22 12:31 Eos # (Auto) 0.2 10^3/uL (0.0-0.8) 05/13/22 12:31 Baso # (Auto) 0.1 10^3/uL (0.0-0.1) 05/13/22 12:31 Nucleated RBC % (auto) 0 % 05/13/22 12: Nucleated RBCs # 0.0 /100WBC 05/13/22 12:31 D-Dimer 0.37 ug/mIFEU (0-0.59) 05/13/22 12:31 Sodium 140 mmol/L (136-145) 05/13/22 12:31 Potassium 3.8 mmol/L (3.5-5.1) 05/13/22 12:31 Chloride 104 mmol/L (98-107) 05/13/22 12:31 Carbon Dioxide 22 mmol/L (22-29) 05/13/22 12:31 Anion Gap 17.8 (5-19) 05/13/22 12:31 BUN 7 mg/dL (6-20) 05/13/22 12:31 Creatinine 0.7 mg/dL (0.5-0.9) 05/13/22 12:31 GFR Calculation 101.1 mL/min (90-130) 05/13/22 12:31 Glucose 88 mg/dL (65-115) 05/13/22 12:31 Calculated Osmolality 287 mOsm/kg (285-295) 05/13/22 12:31 Calcium 9.6 mg/dL (8.5-10.5) 05/13/22 12:31 Total Bilirubin 0.3 mg/dL (0.15-1.2) 05/13/22 12:31 AST 17 U/L (0-32) 05/13/22 12:31 ALT 19 U/L (0-33) 05/13/22 12:31 Alkaline Phosphatase 85 U/L (35-105) 05/13/22 12:31 Troponin T Baseline 6 ng/L (0-10) 05/13/22 12:31 Total Protein 7.6 g/dL (6.6-8.7) 05/13/22 12:31 Albumin 4.2 g/dL (3.5-5.2) 05/13/22 12:31 Globulin 3.4 g/dL (1.3-4.6) 05/13/22 12:31 Lipase 35 U/L (13-60) 05/13/22 12:31 HCG, Qual Negative (Negative) 05/13/22 12:31 SARS-CoV-2 Ag (Rapid) Negative (Negative) 05/13/22 12:31 EKG Data EKG 1: Other EKG comments: Sinus tachycardia, rate of 120, no signs of Brug[place], WPW, prolonged QT, HOCM, or acute ischemia Discharge Plan Discharge Condition: Stable Prescriptions: No Action propranolol 10 mg tablet 10 mg PO BID PRN (Reason: anxiety) 30 Days Qty: 60 3RF Tylenol Ex Str Rapid Release 500 mg Tablet 1,000 mg PO Q6H PRN (Reason: Pain) Benadryl Allergy 25 mg Tablet 50 mg PO Q6H PRN (Reason: Allergic Reaction) ProAir HFA 90 mcg/actuation HFA aerosol inhaler 2 puff INHALATION Q4H PRN (Reason: Shortness Of Breath) dextroamphetamine-amphetamine 5 mg tablet 1 tab PO QAM PRN (Reason: unknown) fluoxetine 40 mg capsule 40 mg PO BEDTIME venlafaxine 150 mg capsule,extended release 24hr 150 mg PO BEDTIME Depo-Provera 150 mg/mL suspension 150 mg IM .EVERY 3 MONTHS Referrals: Bryant Downey DO [Primary Care Provider] - Coding Level of Care Code ED Environmental Projects Advisor for Chg Amy
[2022-05-13 12:47] LABS: Basophils # 0.1 10^3/uL (0.0-0.1); Basophils % 0.6 %; Eosinophils # 0.2 10^3/uL (0.0-0.8); Eosinophils % 1.7 %; Hematocrit 45.1 % (37.0-47.0); Hemoglobin 14.5 g/dL (11.5-15.3); Lymphocytes # 3.6 10^3/uL (0.8-4.8); Lymphocytes % 28.4 %; Mean Corpuscular HGB Conc 32.2 g/dL (30.0-36.0); Mean Corpuscular Hemoglobin 27.5 pg (28.0-34.0); Mean Corpuscular Volume 85.6 fl (81-99); Mean Platelet Volume 12.2 fL (7.4-10.4); Monocytes # 0.8 10^3/uL (0.2-0.9); Neutrophils % 62.9 %; Nucleated Red Blood Cells % 0 %; Platelet Count 357 10^3/cmm (130-400); Red Blood Count 5.27 10^6/uL (4.1-5.3); Red Cell Distribution Width 13.5 % (12.1-15.1); White Blood Count 12.6 10^3/uL (4.0-10.0)
[2022-05-13 13:00] LABS: D Dimer 0.37 ug/mIFEU (0-0.59)
[2022-05-13 13:06] LABS: Troponin(5th) Baseline 6 ng/L (0-10)
[2022-05-13 13:07] LABS: HCG Qualitative Urine. Negative (Negative)
[2022-05-13 13:09] LABS: Alanine Aminotransferase 19 U/L (0-33); Albumin Level 4.2 g/dL (3.5-5.2); Alkaline Phosphatase 85 U/L (35-105); Blood Urea Nitrogen 7 mg/dL (6-20); Calcium 9.6 mg/dL (8.5-10.5); Carbon Dioxide 22 mmol/L (22-29); Chloride 104 mmol/L (98-107); Creatinine Clr Calc Pharmacy 132.4446; Globulin 3.4 g/dL (1.3-4.6); Glomerular Filtration Rate 101.1 mL/min (90-130); Glucose 88 mg/dL (65-115); Lipase 35 U/L (13-60); Osmolality Calculated 287 mOsm/kg (285-295); Sodium 140 mmol/L (136-145); Total Bilirubin 0.3 mg/dL (0.15-1.2); Total Protein 7.6 g/dL (6.6-8.7)
[2022-05-13] MEDS: aspirin 81 mg Chew Tablet 324 MG PO (13:14)
[2022-05-13 13:21] LABS: SARS Covid-2 Antigen Negative (Negative)
[2022-05-13 13:26] LABS: Anion Gap 17.8 (5-19); Aspartate Amino Transferase 17 U/L (0-32); Potassium 3.8 mmol/L (3.5-5.1)
[2022-05-13 13:54] VITALS: BP 147/94; PULSE 94; RESP 18; TEMP 36.8
== END 2022-05-13 14:20 | disposition home or self-care (01) ==
PROVIDERS: Emergency Provider Emergency Medicine; PCP Family Medicine
DX: R07.9 Chest pain, unspecified (principal); R06.02 Shortness of breath; Z20.822 Contact with and (suspected) exposure to COVID-19
CPT/HCPCS: 71045; 80053; 81025; 83690; 84484; 85025; 85378; 87426; 93005; 99285

== ENCOUNTER 2022-05-16 19:51 | Emergency (ER) | payer BC, MEDICAID, SELFPAY ==
[2022-05-16 20:00] VITALS: BP 120/92; BP 133/90; PULSE 135; PULSE 144; RESP 16; RESP 7; TEMP 36.7; O2SAT 97
--- NOTE | 2022-05-16 20:05 | XRR_ITS ---
PROCEDURE INFORMATION: Exam: XR Chest Exam date and time: 05/16/2022 8:15 PM Age: 26 years old Clinical indication: Angina; Additional info: Cp TECHNIQUE: Imaging protocol: Radiologic exam of the chest. Views: 1 view. COMPARISON: CR XR chest 1V portable [id number] 05/13/2022 12:14 PM FINDINGS: Lungs: Unremarkable. No consolidation. Pleural spaces: Unremarkable. No pleural effusion. No pneumothorax. Heart/Mediastinum: Unremarkable. No cardiomegaly. Bones/joints: Unremarkable. XR/XR chest 1V portable [id number] IMPRESSION: No acute findings.
--- NOTE | 2022-05-16 20:05 | ECG_ITS ---
[facility] Test Date: 2022-05-16 Pat Name: Krystin Cr Department: Room: Gender: Female Patient Clerical Assistant: : 1995 Requested By: Mayi Khalil Order Number: [id number] Teresa MD: Cresencio Flynn M.D. Measurements Intervals [place] Rate: 139 P: 30 NV: 142 QRS: 13 QRSD: 77 T: 42 QT: 294 QTc: 448 Interpretive Statements SINUS TACHYCARDIA POSSIBLE ANTERIOR MYOCARDIAL INFARCTION , PROBABLY OLD [30 ms Q WAVE IN V3/V4, OR R < 0.2 mV IN V4] ABNORMAL RHYTHM ECG Compared to ECG 05/13/2022 11:49:32 Myocardial infarct finding now present Electronically Signed On 05-17-2022 15:38:41 CDT by Cresencio Flynn M.D. [email or web address]/[id number] [email or web address]
--- NOTE | 2022-05-16 20:10 | W.ED.GENADLT ---
HPI - General Adult General: Chief complaint: Arrhythmia/Palpitations Stated complaint: Left Arm Pain\Tightness Chest Time Seen by Provider: 05/16/22 20:06 History of Present Illness: Patient is a 26-year-old female with a history of recent evaluation for chest pain, anxiety, depression presenting to the emergency room with complaints of left arm numbness and new onset of chest pain. Patient tells me that on 05/02/2020, she took 10 mg of atomoxetine. Since then, patient has been feeling off. Patient initially presented to the emergency room on 05/02/2022 for concern of allergic reaction. Patient was watched in the emergency 1 and ultimately discharged. Since discharge from hospital, patient tells me that she has been feeling off, she has had intermittent chest pain. Most recently on 05/13, patient complained of diffuse chest pain and said to come to the emergency room for evaluation. At that time, patient is work-up increased EKG/troponin/D-dimer were within normal limit. Patient was ultimately discharged home. Patient tells me that her symptoms has persisted and today patient began experiencing numbness and the pain in the left arm in addition to her chest pain. Patient describes diffuse chest ache with diaphragmatic pain. Patient denies any fever/chills but reports ongoing cough. Patient tells me that she has been experiencing allergic reaction to everything at home. Denies nausea/vomiting, hives/urticaria, fever/chill, chest pain, shortness of breath, abdominal pain, dysuria/hematuria/polyuria, diarrhea/melena/hematochezia. Onset: 5 days ago Duration:ongoing Location:home Severity:mild/moderate Associated symptoms: Reports chest pain and palpitations; Deny dyspnea, nausea, rash or vomiting Review of Systems Const: Denies: fever(s) or chills Eyes: Denies: change in vision ENMT: Denies: mouth pain Card: Reports: chest pain and palpitations Resp: Denies: dyspnea or non-productive cough GI: Denies: abdominal pain, nausea, vomiting or diarrhea : Denies: dysuria Musc: Reports: other (+L arm numbness and pain); Denies: extremity pain Skin/Breast: Denies: rash or new lesions Neuro: Denies: weakness in extremities Psych: Reports: other (Normal mood) Jordin/Lymph: Denies: easy bruising PFSH ED PFSH: Medical History ADHD Anxiety MDD (major depressive disorder) Psychiatric care Social anxiety disorder Social History Smoking and tobacco status: never smoked Second hand smoke exposure: No Current gender identity: Female Female Reproductive History: Date of last menstrual period: 09/12/21 Physical Exam Const: COMMON NORMALS: alert HENMT: COMMON NORMALS: atraumatic HEAD & SCALP: atraumatic MOUTH: moist mucous membranes not abnormal Eye: COMMON NORMALS: EOMs intact bilaterally and conjunctivae normal CONJUNCTIVA: Yes conjunctivae normal Neck/C-Spine: COMMON NORMALS: full ROM and supple Resp: COMMON NORMALS: normal respiratory effort and clear to auscultation bilaterally AUSCULTATION: clear to auscultation bilaterally Cardio: RATE: tachycardic GI: COMMON NORMALS: Soft to palpation and non-tender PALPATION: Yes Soft to palpation OTHER: No focal TTP. NO guarding rebound, guarding, rigidity. No CVA tenderness to percussion. Neg Anderson/Neg McBurney's point tenderness, no suprabupic tenderness to palpation. Extremity: COMMON NORMALS: full ROM OTHER: + Radial pulse in the left arm, sensation tact in the left arm, strength 5/5 in the left upper extremity, no palpable tenderness over the extremities Neuro: SENSORIUM/ORIENTATION: Yes alert MOTOR EXAM: No Abnormal motor strength present and Other motor observations present (no focal motor deficits) Psych: COMMON NORMALS: speech normal SPEECH: Yes normal speech MOOD & AFFECT: Yes euthymic mood Course Vital Signs: Vital signs: Vital Signs Temperature 98.0 F 05/16/22 20:00 Pulse Rate 106 H 05/16/22 22:00 Respiratory Rate 15 05/16/22 22:00 Blood Pressure 120/85 05/16/22 22:00 Pulse Oximetry 97 05/16/22 20:00 Oxygen Delivery Me thod 05/16/22 20:00 MDM - General Adult Medical Decision Making [26]yo patient w/ hx of anxiety, depression and recent cardiac evaluation presenting to the ED with evaluation of new onset sharp chest pain since 6 days ago. Patient initially had a heart rate of 130s. pulse 2+ radially bilaterally, no signs of fluid overload, AAOx3, neuro exam intact. Given History and Exam today I have no suspicion for ACS, Pneumothorax, Pneumonia, Pulmonary Embolus, Tamponade, Aortic Dissection or other emergent problems as a cause for this presentation. Workup: ECG, CXR, CBC, BMP, Troponin, Dimer Interventions: NS, ativan, IVF Findings: ECG: No overt evidence of STEMI, hyperacute T waves, localizable STD or T wave inversions. No evidence of Brugada?s sign, delta wave, epsilon wave, significantly prolonged QTc, or malignant arrhythmia. No Q waves. Other Labs unremarkable for emergent problems. CXR: Without PTX, PNA, or widened mediastinum HEART Score: 0 Dimer wnl [930pm] On reassessment, the patient is HDS, no complaints of persistent chest pain in the ED after evaluation. ECG is non-ischemic. Workup today is unremarkable. Doubt ACS/PE or other emergent causes of chest pain. Doubt ACS/PE or other emergent causes of chest pain. No suspicion for aortic dissection given no widened mediastinum, 2+ upper extremity pulses, or tearing pain. No suspicion for PE given no pleuritic chest pain, recent immobilization or surgery hemoptysis, or other VTE risk factors. EKG is non-ischemic. XR normal. On reassessment, patient's heart rate improved after IVF, metoprolol and versed. She reports feeling symptomatically improved. TSH/T4 within normal limit. Rx: Tylenol 500mg PRN pain Disposition: Discharge. Strict return precautions discussed with the patient with full understanding. Advised patient to follow up promptly with a primary care provider in 24-48 hrs if the patient has persistent symptoms. Given return instructions for any crushing/tearing chest pain, focal weakness, syncope or any new or concerning issues. Lab Data : 05/16/22 20:30 05/16/22 20:30 Radiology Impressions Chest X-Ray 05/16/22 20:05 IMPRESSION: No acute findings. Laboratory Results WBC 13.8 10^3/uL (4.0-10.0) H 05/16/22 20:30 RBC 4.86 10^6/uL (4.1-5.3) 05/16/22 20:30 Hgb 13.7 g/dL (11.5-15.3) 05/16/22 20:30 Hct 41.7 % (37.0-47.0) 05/16/22 20: MCV 85.8 fl (81-99) 05/16/22 20: MCH 28.2 pg (28.0-34.0) 05/16/22 20: MCHC 32.9 g/dL (30.0-36.0) 05/16/22 20: RDW 13.4 % (12.1-15.1) 05/16/22: Plt Count 317 10^3/cmm (130-400) 05/16/22 20: MPV 12.5 fL (7.4-10.4) H 05/16/22 20: Neut % (Auto) 64.7 % 05/16/22 20: Lymph % (Auto) 26.9 % 05/16/22 20: [place] % (Auto) 6.0 % 05/16/22: Eos % (Auto) 1.6 % 05/16/22: Baso % (Auto) 0.5 % 05/16/22: Neut # (Auto) 8.91 10^3/uL (1.8-7.7) H 05/16/22 20: Lymph # (Auto) 3.7 10^3/uL (0.8-4.8) 05/16/22 20: [place] # (Auto) 0.8 10^3/uL (0.2-0.9) 05/16/22 20:30 Eos # (Auto) 0.2 10^3/uL (0.0-0.8) 05/16/22: Baso # (Auto) 0.1 10^3/uL (0.0-0.1) 05/16/22: Nucleated RBC % (auto) 0 % 05/16/22: Nucleated RBCs # 0.0 /100WBC 05/16/22: D-Dimer <= 0.27 ug/mIFEU (0-0.59) 05/16/22 20: Sodium 135 mmol/L (136-145) L 05/16/22 20: Potassium 3.5 mmol/L (3.5-5.1) 05/16/22: Chloride 101 mmol/L (98-107) 05/16/22 20:30 Carbon Dioxide 22 mmol/L (22-29) 05/16/22 20:30 Anion Gap 15.5 (5-19) 05/16/22 20:30 BUN 8 mg/dL (6-20) 05/16/22 20:30 Creatinine 0.7 mg/dL (0.5-0.9) 05/16/22 20:30 GFR Calculation 101.1 mL/min (90-130) 05/16/22 20:30 Glucose 116 mg/dL (65-115) H 05/16/22 20:30 Calculated Osmolality 279 mOsm/kg (285-295) L 05/16/22 20:30 Calcium 9.1 mg/dL (8.5-10.5) 05/16/22 20:30 Total Bilirubin 0.3 mg/dL (0.15-1.2) 05/16/22 20:30 AST 15 U/L (0-32) 05/16/22 20:30 ALT 18 U/L (0-33) 05/16/22 20:30 Alkaline Phosphatase 80 U/L (35-105) 05/16/22 20:30 Troponin T Baseline 6 ng/L (0-10) 05/16/22 20:30 Total Protein 7.4 g/dL (6.6-8.7) 05/16/22 20:30 Albumin 4.3 g/dL (3.5-5.2) 05/16/22 20:30 Globulin 3.1 g/dL (1.3-4.6) 05/16/22 20:30 TSH 0.80 uIU/mL (0.27-4.20) 05/16/22 20:30 Imaging Data Other Imaging: Radiologist's impression: Close Chest X-Ray (Signed) Anton Hamilton - 05/16/22 Launch?Image [address] [address] XRay Report Signed Patient: Krystin Cr Unit #: [id number] : 1995 Age/Sex: 26 / F ADM Date: 05/16/22 Loc: ER Room/Bed: Attending Dr: Ordering Provider/Ordering MD: Mayi Khalil MD Date of Service: 05/16/22 Procedure(s): XR chest 1V portable [id number] Accession Number(s): [id number] Report Number: [id number] PROCEDURE INFORMATION: Exam: XR Chest Exam date and time: 05/16/2022 8:15 PM Age: 26 years old Clinical indication: Angina; Additional info: Cp TECHNIQUE: Imaging protocol: Radiologic exam of the chest. Views: 1 view. COMPARISON: CR XR chest 1V portable [id number] 05/13/2022 12:14 PM FINDINGS: Lungs: Unremarkable. No consolidation. Pleural spaces: Unremarkable. No pleural effusion. No pneumothorax. Heart/Mediastinum: Unremarkable. No cardiomegaly. Bones/joints: Unremarkable. XR/XR chest 1V portable [id number] IMPRESSION: No acute findings. ? Dictated By: Anton Hamilton DO Signed By: Anton Hamilton DO Signed Date/Time: 05/16/222031 DD/ 14 Discharge Plan Discharge Patient Disposition: Home Clinical Impression: Chest pain Condition: Stable Prescriptions: New acetaminophen 500 mg tablet 500 mg PO Q6H PRN (Reason: pain) 5 Days Qty: 20 0RF No Action propranolol 10 mg tablet 10 mg PO BID PRN (Reason: anxiety) 30 Days Qty: 60 3RF Tylenol Ex Str Rapid Release 500 mg Tablet 1,000 mg PO Q6H PRN (Reason: Pain) Benadryl Allergy 25 mg Tablet 50 mg PO Q6H PRN (Reason: Allergic Reaction) ProAir HFA 90 mcg/actuation HFA aerosol inhaler 2 puff INHALATION Q4H PRN (Reason: Shortness Of Breath) dextroamphetamine-amphetamine 5 mg tablet 1 tab PO QAM PRN (Reason: unknown) fluoxetine 40 mg capsule 40 mg PO BEDTIME venlafaxine 150 mg capsule,extended release 24hr 150 mg PO BEDTIME Depo-Provera 150 mg/mL suspension 150 mg IM .EVERY 3 MONTHS Discharge Orders: Discharge ED (Routine); Ordered 05/16/22 Ordered By: J Luis Coles Referrals: Bryant Downey DO [Primary Care Provider] - Discharge Diet: Advance as tolerated Discharge Activity: Increase activity as tolerated Patient Instructions: Chest Pain (ED) Activity Restrictions/Additional Instructions: Come back to the emergency room if your chest pain worsens, have any fever or chills, worsening shortness of breath, worsening exertional lightheadedness, or any new or concerning complaints. Coding Level of Care Code ED Insurance Verify Rep for Chg Fwd Exam Comprehensive
[2022-05-16] MEDS: LORazepam 2 mg Tablet PO (20:25)
[2022-05-16 20:30] VITALS: BP 132/94; PULSE 126; RESP 14
[2022-05-16] MEDS: sodium chloride 0.9% 1,000 ML 999 ML IV (20:35)
[2022-05-16 20:50] LABS: Basophils # 0.1 10^3/uL (0.0-0.1); Basophils % 0.5 %; Eosinophils # 0.2 10^3/uL (0.0-0.8); Eosinophils % 1.6 %; Hematocrit 41.7 % (37.0-47.0); Hemoglobin 13.7 g/dL (11.5-15.3); Lymphocytes # 3.7 10^3/uL (0.8-4.8); Lymphocytes % 26.9 %; Mean Corpuscular HGB Conc 32.9 g/dL (30.0-36.0); Mean Corpuscular Hemoglobin 28.2 pg (28.0-34.0); Mean Corpuscular Volume 85.8 fl (81-99); Mean Platelet Volume 12.5 fL (7.4-10.4); Monocytes # 0.8 10^3/uL (0.2-0.9); Neutrophils # 8.91 10^3/uL (1.8-7.7); Neutrophils % 64.7 %; Nucleated Red Blood Cells % 0 %; Platelet Count 317 10^3/cmm (130-400); Red Blood Count 4.86 10^6/uL (4.1-5.3); Red Cell Distribution Width 13.4 % (12.1-15.1); White Blood Count 13.8 10^3/uL (4.0-10.0)
[2022-05-16 21:00] VITALS: BP 137/92; PULSE 127; RESP 20
[2022-05-16 21:11] LABS: D Dimer <= 0.27 ug/mIFEU (0-0.59)
[2022-05-16 21:23] LABS: Alanine Aminotransferase 18 U/L (0-33); Albumin Level 4.3 g/dL (3.5-5.2); Alkaline Phosphatase 80 U/L (35-105); Anion Gap 15.5 (5-19); Aspartate Amino Transferase 15 U/L (0-32); Blood Urea Nitrogen 8 mg/dL (6-20); Calcium 9.1 mg/dL (8.5-10.5); Carbon Dioxide 22 mmol/L (22-29); Chloride 101 mmol/L (98-107); Creatinine Clr Calc Pharmacy 132.4446; Globulin 3.1 g/dL (1.3-4.6); Glomerular Filtration Rate 101.1 mL/min (90-130); Glucose 116 mg/dL (65-115); Osmolality Calculated 279 mOsm/kg (285-295); Potassium 3.5 mmol/L (3.5-5.1); Sodium 135 mmol/L (136-145); Total Bilirubin 0.3 mg/dL (0.15-1.2); Total Protein 7.4 g/dL (6.6-8.7)
[2022-05-16 21:30] VITALS: BP 133/85; PULSE 116; RESP 22
[2022-05-16 21:41] LABS: Troponin(5th) Baseline 6 ng/L (0-10)
[2022-05-16] MEDS: metoprolol tartrate 1 mg/1 mL SDV 5 mL 5 MG IVP (21:41)
[2022-05-16 22:00] VITALS: BP 120/85; PULSE 106; RESP 15
[2022-05-16 23:12] LABS: Free T4 Free Thyroxine 0.81 ng/dL (0.82-1.77)
== END 2022-05-16 22:22 | disposition home or self-care (01) ==
PROVIDERS: Emergency Medicine; Emergency Provider Emergency Medicine; PCP Family Medicine
DX: R07.9 Chest pain, unspecified (principal)
CPT/HCPCS: 71045; 80053; 84439; 84443; 84484; 85025; 85378; 93005; 96361; 96374; 99285; J3490; J7030

== ENCOUNTER → 2023-01-17 10:02 | Outpatient (BNVA) | payer BC, SELFPAY | PROVIDERS: PCP Family Medicine; Visit Provider Family Medicine | DX: Z01.419 Encounter for gynecological examination (general) (routine) without abnormal findings (principal); R42 Dizziness and giddiness; Z30.9 Encounter for contraceptive management, unspecified | CPT/HCPCS: 81025; 82607; 83036; 84439; 84443; 84481 ==

== ENCOUNTER → 2023-02-21 10:00 | Outpatient (BNVA) | payer BC, MEDICAID, SELFPAY | PROVIDERS: PCP Family Medicine; Visit Provider Obstetrics & Gynecology | DX: Z01.419 Encounter for gynecological examination (general) (routine) without abnormal findings (principal) | CPT/HCPCS: 88175 ==

== ENCOUNTER 2023-04-02 10:02 | Day surgery (SDC) | payer BC, MEDICAID, SELFPAY ==
[2023-03-28 08:45] VITALS: BMI 38.9
[2023-03-28 08:59] LABS: OR HCG Qualitative Urine Negative (Negative)
[2023-03-28 09:06] LABS: Basophils # 0.1 10^3/uL (0.0-0.1); Basophils % 0.7 %; Eosinophils # 0.1 10^3/uL (0.0-0.8); Eosinophils % 1.3 %; Hematocrit 40.4 % (37.0-47.0); Lymphocytes # 3.6 10^3/uL (0.8-4.8); Lymphocytes % 35.3 %; Mean Corpuscular HGB Conc 32.2 g/dL (30.0-36.0); Mean Corpuscular Hemoglobin 27.7 pg (28.0-34.0); Mean Corpuscular Volume 86.1 fl (81-99); Mean Platelet Volume 10.7 fL (7.4-10.4); Monocytes # 0.7 10^3/uL (0.2-0.9); Monocytes % 6.7 %; Neutrophils # 5.65 10^3/uL (1.8-7.7); Neutrophils % 55.7 %; Nucleated Red Blood Cells % 0 %; Platelet Count 346 10^3/cmm (130-400); Red Blood Count 4.69 10^6/uL (4.1-5.3); Red Cell Distribution Width 13.2 % (12.1-15.1); White Blood Count 10.1 10^3/uL (4.0-10.0)
[2023-03-28 09:07] LABS: Add Urine Culture? Yes; Add Urine Microscopic? YES; Bacteria Urine 1+ /hpf; Bilirubin Urine Neg (Negative); Blood Urine 2+ (Negative); Glucose Urine UA Norm (Normal); Ketones Urine Negative (Negative); Leukocyte Esterase Urine 1+ (Negative); Nitrate Urine Negative (Negative); Protein Urine Neg (Negative); RBC Urine 0-4 /hpf (0-2); Urine Appearance SL Hazy (CLEAR); Urine Color Yellow (Yellow); Urobilinogen Urine Norm (Negative); pH Urine 5 (5-7)
[2023-03-28 09:23] LABS: Alanine Aminotransferase 12 U/L (0-33); Albumin Level 3.9 g/dL (3.5-5.2); Alkaline Phosphatase 79 U/L (35-105); Aspartate Amino Transferase 11 U/L (0-32); Blood Urea Nitrogen 9 mg/dL (6-20); Calcium 8.9 mg/dL (8.5-10.5); Carbon Dioxide 23 mmol/L (22-29); Chloride 104 mmol/L (98-107); Globulin 3.1 g/dL (1.3-4.6); Glucose 88 mg/dL (65-115); Osmolality Calculated 282 mOsm/kg (285-295); Sodium 137 mmol/L (136-145); Total Bilirubin 0.3 mg/dL (0.15-1.2)
--- NOTE | 2023-03-28 09:23 | P.ANESASSM_ITS ---
Pre-Anesthetic Assessment Height/Weight: Height 1.57 m Weight 96.615 kg Preop Diagnosis: Desire permanent sterilization Operation Date: 04/02/23 12:35 Proposed Procedures p Laparoscopic bilateral salpingectomy 41813, Z30.2(Bilateral) - Clarence Archer MD Familial anesthetic complications: none Social No alcohol and No tobacco Exam alert, oriented x 3, clear to auscultation bilaterally and regular rate & rhythm Airway Mallampati: Class II Dentition: full Pulmonary Asthma CV/HEM Hypertension Anesthetic Plan ASA status: 2 Anesthesia: General Risk of > 500 ml blood loss (7ml/kg in children): No Medications/Allergies Home Medications Medication Instructions Recorded Confirmed Last Taken Type albuterol sulfate 90 mcg/actuation 2 puff inhalation Q4H PRN 05/13/22 03/28/23 Unknown History aerosol inhaler (ProAir HFA) Shortness Of Breath fluoxetine 20 mg capsule 60 mg PO BEDTIME 30 days #90 caps 10/22/22 03/28/23 03/28/23 Rx venlafaxine 150 mg 150 mg PO BEDTIME #30 caps 10/22/22 03/28/23 03/27/23 Rx capsule,extended release 24 hr medroxyprogesterone 150 mg/mL See Rx Instructions .Route 01/07/23 03/28/23 Unknown Rx intramuscular suspension .COMPLEX #1 mL metoprolol tartrate 25 mg tablet See Rx Instructions .Route 03/04/23 03/28/23 03/27/23 Rx .COMPLEX #60 tabs meclizine 25 mg tablet 25 mg PO BID PRN dizziness #60 tabs 03/07/23 03/28/23 03/27/23 Rx Allergies Allergy/AdvReac Type Severity Reaction Status Date / Time amoxicillin Allergy Severe shuts down Verified 03/28/23 08:44 her immune system Penicillins Allergy Intermediate Unknown Verified 03/28/23 08:44 atomoxetine [From Strattera] AdvReac Unknown Verified 03/25/23 08:55 [facility] Anesthesia Medical History ADHD Anxiety MDD (major depressive disorder) Psychiatric care Social anxiety disorder Surgical History History of wisdom tooth extraction Family History Family/Other Cancer breast Grandmother Stroke CAD (coronary artery disease) Diabetes Grandfather Psychiatric illness Denies family history of Chronic kidney disease (CKD) Lung disease Hypertension Data Anesthesia 03/28/23 08:51 03/28/23 08:51 Short CBC 03/28/23 Range/Units 08:51 WBC 10.1 H (4.0-10.0) 10^3/uL Hgb 13.0 (11.5-15.3) g/dL Hct 40.4 (37.0-47.0) % MCV 86.1 (81-99) fl Plt Count 346 (130-400) 10^3/cmm Neut % (Auto) 55.7 % Neut # (Auto) 5.65 (1.8-7.7) 10^3/uL Urine 03/28/23 Range/Units 08:40 Urine Color Yellow (Yellow) Urine Appearance Sl hazy A (CLEAR) Urine pH 5 (5-7) Ur Specific [place] 1.020 (1.005-1.030) Urine Protein Neg (Negative) Urine Glucose (UA) Norm (Normal) Urine Ketones Negative (Negative) Urine Nitrate Negative (Negative) Urine Bilirubin Neg (Negative) Ur Leukocyte Esterase 1+ H (Negative) Urine RBC 0-4 H (0-2) /hpf Urine WBC 5-10 H (0-5) /hpf Cardiac Studies: No Data to Display
[2023-04-02] VITALS (10 sets, daily range): BP systolic 102–131; BP diastolic 68–92; PULSE 113–126; RESP 16–22; TEMP 36.2–36.9; O2SAT 91–97
[2023-04-02 10:41] LABS: OR HCG Qualitative Urine Negative (Negative)
--- NOTE | 2023-04-02 10:47 | P.ANESUD_ITS ---
Pre-Anesthetic Update Pre-Anesthetic Assessment: Date of Surgery/Procedure: 04/02/23 Preop Angi gnosis: Desire permanent sterilization Proposed Procedure: Operation Date: 04/02/23 12:05 Proposed Procedures p Laparoscopic bilateral salpingectomy 42830, Z30.2(Bilateral) - Clarence Archer MD Any changes to Pre-Anesthetic Assessment?: No Vitals: Temperature 98.4 F 04/02/23 10:45 Temperature Source Temporal Artery S can 04/02/23 10:45 Pulse Rate 126 H 04/02/23 10:45 Respiratory Rate 16 04/02/23 10:45 Blood Pressure 126/92 04/02/23 10:45 Blood Pressure Shaista n 103 04/02/23 10:45 Pulse Oximetry 97 04/02/23 10:45 Oxygen Delivery Me thod Room Air 04/02/23 10:45 Exam: Pre-Anes Outpt Exam: alert, oriented x 3, clear to auscultation bilaterally and regular rate & rhythm Cardiac Studies: No Data to Display
--- NOTE | 2023-04-02 11:13 | W.PM.OPSUD ---
Surgery/Procedure H&P Update DATE OF PROCEDURE: April 02, 2023 DATE H&P PERFORMED: 03/25/23 H&P UPDATE INFORMATION: I have reviewed H&P completed within last 30 days, I have examined patient prior to procedure and No changes to prior documentation PREOP DIAGNOSIS: Desire permanent sterilization PLANNED PROCEDURE: Operation Date: 04/02/23 12:05 Proposed Procedures p Laparoscopic bilateral salpingectomy 57941, Z30.2(Bilateral) - Clarence Archer MD
[2023-04-02] MEDS: scopolamine 1.5 Patch 1 PATCH TRANSDERMA (11:17)
[2023-04-02] MEDS: sodium chloride 0.9% 1,000 ML 30 ML IV (11:18)
[2023-04-02] MEDS: vancomycin 1,000 MG in sodium chloride 0.9% 250 ML 250 MG IV ×2 (11:18→11:31)
--- NOTE | 2023-04-02 12:32 | PM.OP ---
Operative Report Date of procedure: April 02, 2023 Pre-op diagnosis: Preop Diagnosis Desire permanent sterilization Post-op diagnosis: Same as above Procedure done: Laparoscopic bilateral salpingectomy Specimens removed/disposition: Left and right fallopian tubes Surgeon: Clarence Archer MD Estimated blood loss (mL): 5 IV fluids (mL): 700 Urine output (mL): 50 Complications: None Procedure: After informed consent, the patient was taken to the operating room where general anesthesia was administered. She was placed in the dorsal lithotomy position and prepped and draped in sterile fashion. Pre-Procedure Time-Out verifying the correct patient identity, correct procedure verified with consent, correct site and side, correct patient position, availability of correct implants and any special equipment or requirements was performed and acknowledge by the OR team. The patient was examined under anesthesia and found to have a normal uterus with normal adnexa. A weighted speculum was placed in the vagina, and the anterior lip of cervix was grasped with the single toothed tenaculum. A uterine manipulator was advanced into the endocervical canal and uterus. The tenaculum was removed after uterine manipulator was secured. The speculum was removed from the vagina. An intraumbilical incision was made with a scalpel. While tenting up on the abdomen, a Verres needle was admitted into the intra-abdominal cavity. A saline drop test was performed and noted to be within normal limits. Pneumoperitoneum was attained with 4 liters of carbon dioxide. The Verres needle was removed. A 5 mm Opitc view trocar and sleeve were admitted into the abdomen and laparoscopic confirmation of location was achieved. A second incision was made 3 cm above the symphysis pubis, and a 5 mm trocar sleeves were admitted into the abdomen under direct laparoscopic visualization without complication. A survey revealed normal abdominal anatomy with the exception of string adhesion to the right lower anterior abdominal wall. A 5 mm blunt probe was advanced through the second trocar sleeve, and light manipulation of ovaries and uterus to assess the posterior aspects was performed. The pelvic survey shows normal uterus, left and right adnexa. The patient was placed into Trendelenburg position. The fallopian tubes were inspected bilaterally and the fimbriated ends of the fallopian tubes were visualized bilaterally. Attention was then directed to the right side. The fallopian tube and mesosalpinx were grasped and the underlying mesosalpinx was cauterized/sealed and cut using the Ligasure device. Serial cauterization and cutting was used to separate the fallopian tube from the underlying mesosalpinx until it could be amputated cutting it approximated 2 cm from the cornua. Attention was then turned to the contralateral fallopian tube, which was removed in similar fashion. Both specimens were removed through the trocar and sent to pathology. The instruments were removed. The suprapubic trocar port was removed under direct visualization insuring good hemostasis. The carbon dioxide was allowed to escape from the abdomen. The intraumbilical trocar sleeve was withdrawn under visualization with laparoscope in the sleeve to insure hemostasis. The skin incisions were closed with 3-O Monocryl subcuticular stich and Dermabond. The instruments were removed from the vagina, and excellent hemostasis was noted. The patient tolerated the procedure well, and sponge, lap and needle count were correct times two. The patient was taken to the recovery room in good condition.
--- NOTE | 2023-04-02 14:52 | ANE.PACU2 ---
Inpatient post-anesthesia follow up: Airway intact: Yes Vital signs: Temperature 97.9 F Pulse Rate 116 Respiratory Rate 16 Blood Pressure 124/77 Pulse Oximetry 97 Oxygen Delivery Me thod Room Air Oxygen Flow Rate 2 Fraction of Inspir ed Oxygen Hydration adequate: Yes Nausea and vomiting: No Pain level: 3 Mental status: Baseline
--- NOTE | 2023-04-02 14:56 | SUR.PHASEII ---
14:00 rodriguez dc'ed catheter intact.
== END 2023-04-02 14:15 | disposition home or self-care (01) ==
PROVIDERS: Anesthesiology; PCP Family Medicine; Visit Provider Obstetrics & Gynecology
PROC: (CPT 58661; principal; 2023-04-02 11:55)
DX: Z30.2 Encounter for sterilization (principal); J45.909 Unspecified asthma, uncomplicated; I10 Essential (primary) hypertension
CPT/HCPCS: 58661; 80053; 81001; 84703; 85025; 86850; 86900; 87086; 88302; J1100; J1200; J1885; J2250; J2405; J2704; J3010; J3370; J3490; J7030; J7050

== ENCOUNTER → 2023-09-11 13:28 | Outpatient (BNVA) | payer BC, SELFPAY | PROVIDERS: PCP Family Medicine; Visit Provider Nurse Practitioner Psychiatric/Mental Health | DX: Z79.899 Other long term (current) drug therapy (principal) | CPT/HCPCS: 80053; 80307 ==

== ENCOUNTER 2023-11-05 12:39 | Emergency (ER) | payer BC, MEDICAID, SELFPAY ==
[2023-11-05 12:50] VITALS: BP 126/87; PULSE 113; RESP 16; TEMP 36.6; O2SAT 98; BMI 37.8
--- NOTE | 2023-11-05 13:40 | ED_ITS ---
Documented by User: ALMA Jeong 11/05/23 14:39 HPI - Dizziness 2 General: Chief Complaint: Dizziness Stated Complaint: dizzy,tingling feeling in face Time Seen by Provider: 11/05/23 13:40 History of Present Illness: HPI Narrative: 28-year-old female comes in today for co mplaints of dizziness and tingling in the left face and left hand. Patient is being evaluated for what is described as absence seizures. Patient states that she will stare off into space and then when she comes out of it is tired for short period afterwards. Patient reports a similar event this morning that after coming out of the seizure like episode patient had some dizziness and tingling in the left side of her face and left hand. Patient reports improved symptoms. Patient does use meclizine for dizziness, medications for depression, medications for ADHD. Patient appears nontoxic. Patient is scheduled to have a EEG done in December for further evaluation of these episodes. Associated neuro symptoms: Reports numbness in extremities Review of Systems 2 General: Reports: 10 or more systems reviewed and unremarkable except in HPI and below Neuro: Reports: numbness in extremities and dizziness [facility] ED 2 PFSH: Medical History Compulsive skin picking Chronic post-traumatic stress disorder Generalized anxiety disorder Major depressive disorder, recurrent episode, moderate with anxious distress ADHD Psychiatric care Surgical History History of bilateral salpingectomy (~04/02/23) laparoscopic bilateral salpingectomy performed by Dr. Archer at [facility] History of wisdom tooth extraction Family History Family/Other Cancer breast Grandmother Stroke CAD (coronary artery disease) Diabetes Grandfather Psychiatric illness Denies family history of Chronic kidney disease (CKD) Lung disease Hypertension Social History (Updated 10/21/23 @ 09:36 by Jeanette Restrepo) Smoking and tobacco/nicotine status: never used tobacco/nicotine Alcohol intake: never Substance/Drug Use: never Physical Exam 2 Const: COMMON NORMALS: alert HENMT: COMMON NORMALS: normocephalic HEAD & SCALP: normocephalic Neck/C-Spine: COMMON NORMALS: full ROM Resp: COMMON NORMALS: normal respiratory effort and clear to auscultation bilaterally AUSCULTATION: clear to auscultation bilaterally Cardio: COMMON NORMALS: regular rate RATE: regular rate Back/Pelvis: COMMON NORMALS: thoracic and lumbar spine normal to inspection Extremity: COMMON NORMALS: normal to inspection Neuro: SENSORIUM/ORIENTATION: Yes alert Skin: COMMON NORMALS: turgor normal GENERAL SKIN EXAM: turgor normal Course 2 Vital Signs: Vital signs: Vital Signs Temperature 97.9 F 11/05/23 12:50 Pulse Rate 113 H 11/05/23 12:50 Respiratory Rate 16 11/05/23 12:50 Blood Pressure 125/86 11/05/23 14:59 Pulse Oximetry 99 11/05/23 14:30 Oxygen Delivery Me thod Room Air 11/05/23 12:50 MDM - Dizziness Medical Decision Making 20-year-old female comes in today for concerns of dizziness and numbness/tingling to the left face and left hand. No focal neural deficits are noted. Patient moves extremities well. No facial drooping or speech changes are noted. Differential diagnosis includes not limited to nonepileptic seizures, anxiety disorder, absence seizures, unlikely intracranial bleeding/stroke syndrome. CT of the head was unremarkable. CBC and CMP noted a mild leukocytosis at 15,000. EKG was normal. No signs of serious injury or illnesses noted. Believe the paresthesias probably secondary to patient's seizure disorder. Recommend just continue follow-up and evaluation with neurology as she has scheduled. Patient reported understanding and agreed to plan. Lab Data 11/05/23 13:47 11/05/23 13:47 Laboratory Results WBC 15.38 10^3/uL (3.29-11.43) H 11/05/23 13:47 RBC 5.01 10^6/uL (3.85-5.65) 11/05/23 13:47 Hgb 14.20 g/dL (11.27-16.99) 11/05/23 13:47 Hct 43.4 % (36-47) 11/05/23 13:47 MCV 86.6 fl (85-98) 11/05/23 13:47 MCH 28.3 pg (27-33) 11/05/23 13:47 MCHC 32.7 g/dL (30-55) 11/05/23 13:47 RDW 13.2 % (12.1-15.1) 11/05/23 13:47 Plt Count 302 10^3/cmm (157-399) 11/05/23 13:47 MPV 11.5 fL (7.4-10.4) H 11/05/23 13:47 Neut % (Auto) 74.8 % 11/05/23 13:47 Lymph % (Auto) 18.0 % 11/05/23 13:47 [place] % (Auto) 5.2 % 11/05/23 13:47 Eos % (Auto) 1.3 % 11/05/23 13:47 Baso % (Auto) 0.4 % 11/05/23 13:47 Neut # (Auto) 11.50 10^3/uL (1.8-7.7) H 11/05/23 13:47 Lymph # (Auto) 2.8 10^3/uL (0.8-4.8) 11/05/23 13:47 [place] # (Auto) 0.8 10^3/uL (0.2-0.9) 11/05/23 13:47 Eos # (Auto) 0.2 10^3/uL (0.0-0.8) 11/05/23 13:47 Baso # (Auto) 0.1 10^3/uL (0.0-0.1) 11/05/23 13:47 Nucleated RBC % (auto) 0 % 11/05/23 13:47 Nucleated RBCs # 0.0 /100WBC 11/05/23 13:47 Sodium 137 mmol/L (136-145) 11/05/23 13:47 Potassium 4.2 mmol/L (3.5-5.1) 11/05/23 13:47 Chloride 102 mmol/L (98-107) 11/05/23 13:47 Carbon Dioxide 24 mmol/L (22-29) 11/05/23 13:47 Anion Gap 15.2 (5-19) 11/05/23 13:47 BUN 10 mg/dL (6-20) 11/05/23 13:47 Creatinine 0.8 mg/dL (0.5-0.9) 11/05/23 13:47 GFR Calculation 85.4 mL/min (90-130) L 11/05/23 13:47 Glucose 90 mg/dL (65-115) 11/05/23 13:47 Calculated Osmolality 283 mOsm/kg (285-295) L 11/05/23 13:47 Calcium 9.1 mg/dL (8.5-10.5) 11/05/23 13:47 Total Bilirubin 0.2 mg/dL (0.15-1.2) 11/05/23 13:47 AST 16 U/L (0-32) 11/05/23 13:47 ALT 17 U/L (0-33) 11/05/23 13:47 Alkaline Phosphatase 97 U/L (35-105) 11/05/23 13:47 Total Protein 7.5 g/dL (6.6-8.7) 11/05/23 13:47 Albumin 4.1 g/dL (3.5-5.2) 11/05/23 13:47 Globulin 3.4 g/dL (1.3-4.6) 11/05/23 13:47 HCG, Qual Negative (Negative) 11/05/23 13:47 All radiology interpretation(s) finalized by discharge EKG Data EKG 1: I personally reviewed and interpreted this EKG as follows: EKG interpretation date: 11/05/23 EKG interpretation time: 13:55 Prior EKG tracings: not available for review Interpretation: EKG shows a sinus rhythm with sinus arrhythmia, slightly irregular rate at [address] elevation or ectopy is noted. No prior exam was available for comparison. Computer generated interpretation: Sinus rhythm with sinus arrhythmia, low QRS voltage in precordial leads, borderline EKG, unconfirmed report. Discharge Plan Discharge Patient Disposition: Home Clinical Impression: Seizure disorder, Facial paresthesia, Paresthesias in left hand Condition: Stable Prescriptions: No Action venlafaxine [Effexor XR] 150 mg capsule,extended release 24hr 150 mg PO .morning Qty: 30 3RF Rx Instructions: Take one capsule every morning venlafaxine [Effexor XR] 75 mg capsule,extended release 24hr 75 mg PO QAM Qty: 30 3RF Rx Instructions: Take one capsule every morning meclizine 25 mg tablet 25 mg PO TID PRN (Reason: dizziness) Qty: 90 2RF acetylcysteine 600 mg capsule 600 mg PO BID Qty: 60 3RF Rx Instructions: Take one capsule twice per day metoprolol tartrate 25 mg tablet See Rx Instructions .ROUTE .COMPLEX Qty: 60 0RF Dose Instruction: TAKE 1 TABLET BY MOUTH TWICE DAILY FOR HEART OR ANXIETY Rx Instructions: TAKE 1 TABLET BY MOUTH TWICE DAILY FOR HEART OR ANXIETY dextroamphetamine-amphetamine 20 mg tablet 40 mg PO .morning 30 Days Qty: 60 0RF Rx Instructions: Take two tablets every morning albuterol sulfate [ProAir HFA] 90 mcg/actuation HFA aerosol inhaler 2 puff INHALATION Q4H PRN (Reason: Shortness Of Breath) Discharge Orders: Discharge ED (Routine); Ordered 11/05/23 Ordered By: Chicho Mcgarry Referrals: Mary Ann Esquivel MD [Primary Care Provider] - Patient Instructions: Paresthesia (ED) Activity Restrictions/Additional Instructions: Home and rest. Continue with routine care. Return to ED for new concerns. Coding Level of Care Code ED Rhinologist for Chg Fwd Documented by User: Joel Lee DO 11/05/23 15:08 HPI - Dizziness 2 General: Chief Complaint: Dizziness Stated Complaint: dizzy,tingling feeling in face Time Seen by Provider: 11/05/23 13:40 PFSH ED 2 PFSH: Medical History Compulsive skin picking Chronic post-traumatic stress disorder Generalized anxiety disorder Major depressive disorder, recurrent episode, moderate with anxious distress ADHD Psychiatric care Surgical History History of bilateral salpingectomy (~04/02/23) laparoscopic bilateral salpingectomy performed by Dr. Archer at [facility] History of wisdom tooth extraction Family History Family/Other Cancer breast Grandmother Stroke CAD (coronary artery disease) Diabetes Grandfather Psychiatric illness Denies family history of Chronic kidney disease (CKD) Lung disease Hypertension Social History (Updated 10/21/23 @ 09:36 by Jeanette Restrepo) Smoking and tobacco/nicotine status: never used tobacco/nicotine Alcohol intake: never Substance/Drug Use: never Course 2 Vital Signs: Vital signs: Vital Signs Temperature 97.9 F 11/05/23 12:50 Pulse Rate 113 H 11/05/23 12:50 Respiratory Rate 16 11/05/23 12:50 Blood Pressure 125/86 11/05/23 14:59 Pulse Oximetry 99 11/05/23 14:30 Oxygen Delivery Me thod Room Air 11/05/23 12:50 MDM - Dizziness Medical Decision Making 20-year-old female comes in today for concerns of dizziness and numbness/tingling to the left face and left hand. No focal neural deficits are noted. Patient moves extremities well. No facial drooping or speech changes are noted. Differential diagnosis includes not limited to nonepileptic seizures, anxiety disorder, absence seizures, unlikely intracranial bleeding/stroke syndrome. CT of the head was unremarkable. CBC and CMP noted a mild leukocytosis at 15,000. EKG was normal. No signs of serious injury or illnesses noted. Believe the paresthesias probably secondary to patient's seizure disorder. Recommend just continue follow-up and evaluation with neurology as she has scheduled. Patient reported understanding and agreed to plan. Chart reviewed and patient discussed with midlevel. Agree with assessment and plan. Lab Data 11/05/23 13:47 11/05/23 13:47 Laboratory Results WBC 15.38 10^3/uL (3.29-11.43) H 11/05/23 13:47 RBC 5.01 10^6/uL (3.85-5.65) 11/05/23 13:47 Hgb 14.20 g/dL (11.27-16.99) 11/05/23 13:47 Hct 43.4 % (36-47) 11/05/23 13:47 MCV 86.6 fl (85-98) 11/05/23 13:47 MCH 28.3 pg (27-33) 11/05/23 13:47 MCHC 32.7 g/dL (30-55) 11/05/23 13:47 RDW 13.2 % (12.1-15.1) 11/05/23 13:47 Plt Count 302 10^3/cmm (157-399) 11/05/23 13:47 MPV 11.5 fL (7.4-10.4) H 11/05/23 13:47 Neut % (Auto) 74.8 % 11/05/23 13:47 Lymph % (Auto) 18.0 % 11/05/23 13:47 [place] % (Auto) 5.2 % 11/05/23 13:47 Eos % (Auto) 1.3 % 11/05/23 13:47 Baso % (Auto) 0.4 % 11/05/23 13:47 Neut # (Auto) 11.50 10^3/uL (1.8-7.7) H 11/05/23 13:47 Lymph # (Auto) 2.8 10^3/uL (0.8-4.8) 11/05/23 13:47 [place] # (Auto) 0.8 10^3/uL (0.2-0.9) 11/05/23 13:47 Eos # (Auto) 0.2 10^3/uL (0.0-0.8) 11/05/23 13:47 Baso # (Auto) 0.1 10^3/uL (0.0-0.1) 11/05/23 13:47 Nucleated RBC % (auto) 0 % 11/05/23 13:47 Nucleated RBCs # 0.0 /100WBC 11/05/23 13:47 Sodium 137 mmol/L (136-145) 11/05/23 13:47 Potassium 4.2 mmol/L (3.5-5.1) 11/05/23 13:47 Chloride 102 mmol/L (98-107) 11/05/23 13:47 Carbon Dioxide 24 mmol/L (22-29) 11/05/23 13:47 Anion Gap 15.2 (5-19) 11/05/23 13:47 BUN 10 mg/dL (6-20) 11/05/23 13:47 Creatinine 0.8 mg/dL (0.5-0.9) 11/05/23 13:47 GFR Calculation 85.4 mL/min (90-130) L 11/05/23 13:47 Glucose 90 mg/dL (65-115) 11/05/23 13:47 Calculated Osmolality 283 mOsm/kg (285-295) L 11/05/23 13:47 Calcium 9.1 mg/dL (8.5-10.5) 11/05/23 13:47 Total Bilirubin 0.2 mg/dL (0.15-1.2) 11/05/23 13:47 AST 16 U/L (0-32) 11/05/23 13:47 ALT 17 U/L (0-33) 11/05/23 13:47 Alkaline Phosphatase 97 U/L (35-105) 11/05/23 13:47 Total Protein 7.5 g/dL (6.6-8.7) 11/05/23 13:47 Albumin 4.1 g/dL (3.5-5.2) 11/05/23 13:47 Globulin 3.4 g/dL (1.3-4.6) 11/05/23 13:47 HCG, Qual Negative (Negative) 11/05/23 13:47 Discharge Plan Discharge Patient Disposition: Home Clinical Impression: Seizure disorder, Facial paresthesia, Paresthesias in left hand Condition: Stable Prescriptions: No Action venlafaxine [Effexor XR] 150 mg capsule,extended release 24hr 150 mg PO .morning Qty: 30 3RF Rx Instructions: Take one capsule every morning venlafaxine [Effexor XR] 75 mg capsule,extended release 24hr 75 mg PO QAM Qty: 30 3RF Rx Instructions: Take one capsule every morning meclizine 25 mg tablet 25 mg PO TID PRN (Reason: dizziness) Qty: 90 2RF acetylcysteine 600 mg capsule 600 mg PO BID Qty: 60 3RF Rx Instructions: Take one capsule twice per day metoprolol tartrate 25 mg tablet See Rx Instructions .ROUTE .COMPLEX Qty: 60 0RF Dose Instruction: TAKE 1 TABLET BY MOUTH TWICE DAILY FOR HEART OR ANXIETY Rx Instructions: TAKE 1 TABLET BY MOUTH TWICE DAILY FOR HEART OR ANXIETY dextroamphetamine-amphetamine 20 mg tablet 40 mg PO .morning 30 Days Qty: 60 0RF Rx Instructions: Take two tablets every morning albuterol sulfate [ProAir HFA] 90 mcg/actuation HFA aerosol inhaler 2 puff INHALATION Q4H PRN (Reason: Shortness Of Breath) Discharge Orders: Discharge ED (Routine); Ordered 11/05/23 Ordered By: Chicho Mcgarry Referrals: Mary Ann Esquivel MD [Primary Care Provider] - Patient Instructions: Paresthesia (ED) Activity Restrictions/Additional Instructions: Home and rest. Continue with routine care. Return to ED for new concerns. Coding Level of Care Code ED Rhinologist for Anupam Reyes
--- NOTE | 2023-11-05 13:42 | ECG_ITS ---
[facility] Test Date: 2023-11-05 Pat Name: Krystin Cr Department: Room: Gender: Female Laboratory Specialist: : 1995 Requested By: Chicho Sosa Order Number: [id number] Moore MD: Cresencio Flynn M.D. Measurements Intervals [place] Rate: 98 P: 28 GA: 146 QRS: 15 QRSD: 75 T: 29 QT: 342 QTc: 438 Interpretive Statements SINUS RHYTHM WITH SINUS ARRHYTHMIA LOW QRS VOLTAGE IN PRECORDIAL LEADS [QRS DEFLECTION < 1.0 mV IN CHEST LEADS] Compared to ECG 05/16/2022 19:59:01 Low QRS voltage now present Sinus tachycardia no longer present Myocardial infarct finding no longer present Electronically Signed On 11-06-2023 10:49:23 [employer] by Cresencio Flynn M.D. [id number]
[2023-11-05 13:54] LABS: Basophils # 0.1 10^3/uL (0.0-0.1); Basophils % 0.4 %; Eosinophils # 0.2 10^3/uL (0.0-0.8); Eosinophils % 1.3 %; Hematocrit 43.4 % (36-47); Lymphocytes # 2.8 10^3/uL (0.8-4.8); Mean Corpuscular HGB Conc 32.7 g/dL (30-55); Mean Corpuscular Hemoglobin 28.3 pg (27-33); Mean Corpuscular Volume 86.6 fl (85-98); Mean Platelet Volume 11.5 fL (7.4-10.4); Monocytes # 0.8 10^3/uL (0.2-0.9); Monocytes % 5.2 %; Neutrophils % 74.8 %; Nucleated Red Blood Cells % 0 %; Platelet Count 302 10^3/cmm (157-399); Red Blood Count 5.01 10^6/uL (3.85-5.65); Red Cell Distribution Width 13.2 % (12.1-15.1); White Blood Count 15.38 10^3/uL (3.29-11.43)
--- NOTE | 2023-11-05 13:57 | CT_ITS ---
WS: [id number] CT HEAD TECHNIQUE: Noncontrast CT of the head obtained from the skullbase to the vertex. CLINICAL INFORMATION: dizziness, seizure disorder COMPARISON: None. DLP: 1023.[address] scans at [facility] use at least one of these dose optimization techniques: automated e xposure control; mA and/or kV adjustment per patient size (includes targeted exams where dose is matc hed to clinical indication); or iterative reconstruction. FINDINGS: No evidence of intracranial hemorrhage or mass effect. Ventricular system and basal cisterns are sainz nt. No extra-axial fluid collections. No evidence of mass or mass effect. Normal martell-white different iation. Paranasal sinuses and mastoid air cells are well aerated. .Normal visualized soft tissues. IMPRESSION: 1. No evidence of intracranial hemorrhage or mass effect. 2. No acute intracranial findings.
[2023-11-05 14:11] LABS: Alanine Aminotransferase 17 U/L (0-33); Albumin Level 4.1 g/dL (3.5-5.2); Alkaline Phosphatase 97 U/L (35-105); Anion Gap 15.2 (5-19); Aspartate Amino Transferase 16 U/L (0-32); Blood Urea Nitrogen 10 mg/dL (6-20); Calcium 9.1 mg/dL (8.5-10.5); Carbon Dioxide 24 mmol/L (22-29); Chloride 102 mmol/L (98-107); Globulin 3.4 g/dL (1.3-4.6); Glomerular Filtration Rate 85.4 mL/min (90-130); Glucose 90 mg/dL (65-115); Osmolality Calculated 283 mOsm/kg (285-295); Potassium 4.2 mmol/L (3.5-5.1); Sodium 137 mmol/L (136-145); Total Bilirubin 0.2 mg/dL (0.15-1.2); Total Protein 7.5 g/dL (6.6-8.7)
[2023-11-05 14:22] VITALS: BP 124/98; BP 135/99; BP 139/90
[2023-11-05 14:24] VITALS: BP 135/99; O2SAT 100
[2023-11-05 14:25] VITALS: BP 139/90; O2SAT 99
[2023-11-05 14:27] LABS: HCG, Serum Qual Negative (Negative)
[2023-11-05 14:30] VITALS: BP 139/90; O2SAT 99
[2023-11-05 14:59] VITALS: BP 125/86
== END 2023-11-05 15:00 | disposition home or self-care (01) ==
PROVIDERS: Emergency Provider Nurse Practitioner Family; PCP Family Medicine
DX: G40.909 Epilepsy, unspecified, not intractable, without status epilepticus (principal); R20.2 Paresthesia of skin
CPT/HCPCS: 36415; 70450; 80053; 84703; 85025; 93005; 99284

== ENCOUNTER 2023-11-21 15:55 | Outpatient (CLI) | payer BC, MEDICAID, SELFPAY ==
--- NOTE | 2023-11-21 16:00 | MR_ITS ---
WS: [id number] MRI BRAIN WITH AND WITHOUT CONTRAST HISTORY: G40.909 - Epilepsy, unspecified, not intractable, without... COMPARISON: CT head 11/05/2023 TECHNIQUE: Multiplanar imaging performed through the brain with MultiHance 10 ml's IV. No acute infarcts are seen. Kuhn-white matter differentiation is well preserved. No susceptibility artifacts or prior lacunar infarcts. Symmetric hippocampal formation. No atrophy. Ventricles and extra-axial spaces are normal. Clivus and pituitary gland are normal. Visualized posterior fossa and brainstem are also normal. Postcontrast images are negative for masses or vascular malformations. Dural venous sinuses are normal. Paranasal sinuses: Well aerated with no significant disease. Mastoid air cells: Normal. Calvarium and scalp: Normal. IMPRESSION: 1. Normal MRI brain with contrast. 2. Normal hippocampal formations. 3. No enhancing mass.
[2023-11-21] MEDS: gadobenate dimeglumine 20 mL vial IV (16:32)
== END 2023-11-21 15:56 | disposition home or self-care (01) ==
LOC: RAD 15:56
PROVIDERS: PCP Family Medicine; Visit Provider Psychiatry & Neurology Neurology
DX: G40.909 Epilepsy, unspecified, not intractable, without status epilepticus (principal); R40.4 Transient alteration of awareness
CPT/HCPCS: 70553; A9577

== ENCOUNTER → 2023-12-07 13:37 | Outpatient (BNVA) | payer BC, SELFPAY | PROVIDERS: PCP Family Medicine; Visit Provider Nurse Practitioner | DX: R39.9 Unspecified symptoms and signs involving the genitourinary system | CPT/HCPCS: 81000 ==

== ENCOUNTER → 2024-05-27 12:35 | Outpatient (BNVA) | payer BC, SELFPAY | PROVIDERS: PCP Family Medicine; Visit Provider Psychiatry & Neurology Neurology | DX: R56.9 Unspecified convulsions (principal); F90.0 Attention-deficit hyperactivity disorder, predominantly inattentive type; F42.4 Excoriation (skin-picking) disorder; F43.12 Post-traumatic stress disorder, chronic; F41.1 Generalized anxiety disorder; F33.1 Major depressive disorder, recurrent, moderate; R42 Dizziness and giddiness | CPT/HCPCS: 36415; 82306; 82607; 82746; 83090; 83735; 83921; 84439; 84443; 84481 ==

== ENCOUNTER 2024-07-10 01:56 | Emergency (ER) | payer SELFPAY ==
[2024-07-10 02:11] VITALS: BP 159/94; PULSE 89; RESP 20; TEMP 37.1; O2SAT 99; BMI 42.0
--- NOTE | 2024-07-10 02:20 | W.ED.DENTAL ---
HPI - Dental/Oral General: Chief complaint: Dental/Oral Stated complaint: right side dental pain Time Seen by Provider: 07/10/24 02:12 History of Present Illness: Patient presents to the ER with complaints of dental pain and facial swelling. Patient has a fractured tooth on the lower right molar region. She has had this for a while but this did not really cause her problems up until about the last week. Started increasing in pain and swelling the right side of her face still she just was unable to tolerate it anymore. Patient denies any problems with swallowing or breathing. Related Data Home Medications Medication Instructions Recorded Confirmed albuterol sulfate 90 mcg/actuation 2 puff inhalation Q4H PRN 05/13/22 06/11/24 aerosol inhaler (ProAir HFA) Shortness Of Breath Previous Rx's Medication Instructions Recorded acetylcysteine 600 mg capsule 600 mg PO BID #60 caps 04/23/24 venlafaxine 150 mg 150 mg PO .morning #30 caps 04/23/24 capsule,extended release 24 hr (Effexor XR) venlafaxine 75 mg capsule,extended 75 mg PO QAM #30 caps 04/23/24 release 24 hr (Effexor XR) cholecalciferol (vitamin D3) 1,250 50,000 unit PO .weekly #14 caps 05/28/24 mcg (50,000 unit) capsule lisdexamfetamine 30 mg capsule 30 mg PO QAM 30 days #30 caps 06/11/24 (Vyvanse) metoprolol tartrate 25 mg tablet 25 mg PO BID #60 tabs 06/11/24 clindamycin HCl 300 mg capsule 300 mg PO Q6H 7 days #28 caps 07/10/24 meloxicam 7.5 mg tablet 7.5 mg PO .Twice daily #14 tabs 07/10/24 Allergies Allergy/AdvReac Type Severity Reaction Status Date / Time amoxicillin Allergy Severe shuts down Verified 06/11/24 13:50 her immune system Penicillins Allergy Intermediate Unknown Verified 06/11/24 13:50 atomoxetine [From Strattera] AdvReac Unknown Verified 06/11/24 13:50 Review of Systems General: Reports: 10 or more systems reviewed and unremarkable except in HPI and below PFSH ED PFSH: Medical History ADHD (attention deficit hyperactivity disorder), inattentive type Compulsive skin picking Chronic post-traumatic stress disorder Generalized anxiety disorder Major depressive disorder, recurrent episode, moderate with anxious distress Psychiatric care Surgical History History of bilateral salpingectomy (~04/02/23) laparoscopic bilateral salpingectomy performed by Dr. Archer at [facility] History of wisdom tooth extraction Family History Family/Other Cancer breast Grandmother Stroke CAD (coronary artery disease) Diabetes Grandfather Psychiatric illness Denies family history of Chronic kidney disease (CKD) Lung disease Hypertension Social History Smoking and tobacco/nicotine status: never used tobacco/nicotine Alcohol intake: never Substance/Drug Use: never Physical Exam Const: COMMON NORMALS: no acute distress, average body habitus, patient oriented x3, no limitations, healthy appearing, alert and well nourished HENMT: COMMON NORMALS: normocephalic, atraumatic, hearing grossly normal bilaterally, external ears normal, Normal external nose present and moist oral mucous membranes; dentition not normal (Broken tooth right molar region lower) HEAD & SCALP: normocephalic and atraumatic NOSE: Normal external nose present EXTERNAL EAR: Yes external ears normal Neck/C-Spine: COMMON NORMALS: full ROM, supple, no meningeal signs, no JVD and Thyroid normal; negative for no lymphadenopathy (Tender lymphadenopathy right ) THYROID: Thyroid normal Chest: COMMONS NORMALS: normal inspection of the chest and normal palpation of entire chest wall Resp: COMMON NORMALS: normal respiratory effort, No retractions, No use of accessory muscles and clear to auscultation bilaterally AUSCULTATION: clear to auscultation bilaterally Cardio: COMMON NORMALS: no JVD, regular rate, regular rhythm, S1 normal heart sound present, S2 normal heart sound present, No gallops present (Cardio), No clicks present (Cardio), No murmurs present (Cardio) and No rub (Cardio) RATE: regular rate RHYTHM: regular rhythm HEART SOUNDS: S1 normal heart sound present and S2 normal heart sound present Neuro: COMMON NORMALS: patient oriented x3 SENSORIUM/ORIENTATION: Yes alert MENINGEAL SIGNS: Yes no meningeal signs Course Vital Signs: Vital signs: Vital Signs Temperature 98.8 F 07/10/24 02:11 Pulse Rate 89 07/10/24 02:11 Respiratory Rate 20 H 07/10/24 02:11 Blood Pressure 159/94 07/10/24 02:11 Pulse Oximetry 99 07/10/24 02:11 [facility] - Dental/Oral Medical Decision Making Patient having dental pain and swelling on the same side she has a dental fracture. We will prescribe her with antibiotics and anti-inflammatories and have her follow-up with her dentist for definitive treatment. Medical Records I reviewed the patient's medical records. Lab Data I reviewed the patient's lab results. No radiology studies performed this visit Discharge Plan Discharge Patient Disposition: Home Clinical Impression: Toothache Fracture of tooth Qualifiers: Encounter type: initial encounter Condition: Stable Prescriptions: New clindamycin HCl 300 mg capsule 300 mg PO Q6H 7 Days Qty: 28 0RF meloxicam 7.5 mg tablet 7.5 mg PO .Twice daily Qty: 14 0RF No Action acetylcysteine 600 mg capsule 600 mg PO BID Qty: 60 6RF Rx Instructions: Take one capsule twice per day venlafaxine [Effexor XR] 150 mg capsule,extended release 24hr 150 mg PO .morning Qty: 30 6RF Rx Instructions: Take one capsule every morning venlafaxine [Effexor XR] 75 mg capsule,extended release 24hr 75 mg PO QAM Qty: 30 6RF Rx Instructions: Take one capsule every morning metoprolol tartrate 25 mg tablet 25 mg PO BID Qty: 60 3RF Rx Instructions: Take one tablet twice per day lisdexamfetamine [Vyvanse] 30 mg capsule 30 mg PO QAM 30 Days Qty: 30 0RF Rx Instructions: Take one capsule every morning cholecalciferol (vitamin D3) 1,250 mcg (50,000 unit) capsule 50,000 unit PO .weekly Qty: 14 4RF albuterol sulfate [ProAir HFA] 90 mcg/actuation HFA aerosol inhaler 2 puff INHALATION Q4H PRN (Reason: Shortness Of Breath) Discharge Orders: Discharge ED (Routine); Ordered 07/10/24 Ordered By: Imtiaz Anderson Referrals: Mary Ann Esquivel MD [Primary Care Provider] - 1 week Patient Instructions: Opioid Safety, Toothache (ED) Activity Restrictions/Additional Instructions: You have been prescribed antibiotics and pain, these have been sent to your pharmacy electronically, please take these as directed. Please follow-up with your dentist for definitive treatment. Coding Level of Care Code ED Horse Farm Manager for Anupam Reyes
[2024-07-10] MEDS: clindamycin 150 mg Capsule 300 MG PO (02:40)
[2024-07-10] MEDS: meloxicam 7.5 mg tablet PO (02:43)
[2024-07-10 02:51] VITALS: BP 141/93; PULSE 92; O2SAT 98
== END 2024-07-10 02:53 | disposition home or self-care (01) ==
PROVIDERS: Emergency Provider Emergency Medicine; PCP Family Medicine
DX: K08.89 Other specified disorders of teeth and supporting structures (principal); S02.5XXA Fracture of tooth (traumatic), initial encounter for closed fracture; X58.XXXA Exposure to other specified factors, initial encounter
CPT/HCPCS: 99283